=== PATIENT | male | born 1985 | race American Indian/Alaskan Native ===

== ENCOUNTER 2016-11-12 12:42 | Emergency (ER) | payer SELFPAY ==
[2016-11-12 13:38] LABS: Hematocrit 46.3 % (35.5-45.6); Hemoglobin 15.7 gm/dl (11.8-15.2); Mean Corpuscular HGB Conc 34 % (32-34); Mean Corpuscular Hemoglobin 31 pg (28-32); Mean Corpuscular Volume 91 fl (84-94); Platelet Count 267 K/mm3 (140-440); Red Blood Count 5.06 M/mm3 (3.65-5.03); Red Cell Distribution Width 13.4 % (13.2-15.2); White Blood Count 4.6 K/mm3 (4.5-11.0)
[2016-11-12 13:52] LABS: Alanine Aminotransferase 9 units/L (7-56); Albumin 4.3 g/dL (3.9-5); Albumin/Globulin Ratio 1.2 %; Alkaline Phosphatase 56 units/L (35-129); Anion Gap 18 mmol/L; Blood Urea Nitrogen 12 mg/dL (9-20); Calcium 9.2 mg/dL (8.4-10.2); Carbon Dioxide 25 mmol/L (22-30); Chloride 96.3 mmol/L (98-107); Glucose 88 mg/dL (75-100); Sodium 135 mmol/L (137-145); Total Protein 7.8 g/dL (6.3-8.2)
--- NOTE | 2016-11-12 14:28 | Cat Scan Report ---
FINAL REPORT PROCEDURE: CT HEAD/BRAIN WO CON TECHNIQUE: Computerized tomography of the head was performed without contrast material. HISTORY: NEURO CHANGES COMPARISON: No prior studies are available for comparison. FINDINGS: Brain: Brain density appears normal. No evidence of intracranial hemorrhage. No parenchymal hemorrhage, mass lesions or mass effect are seen. No abnormal extraxial fluid collects or masses are seen. Ventricles: Ventricles are normal size and are midline. Bone Windows: No evidence of skull fracture. Paranasal sinuses: There is a large oval filling defects partially visualized inferiorly in the left maxillary sinus suggesting large mucous retention cyst. This measures approximately 1.8 x 2.8 centimeter. A 2nd smaller nodule is seen anterior laterally measuring 7.8 millimeters. Visualized portions of the paranasal sinuses otherwise appear clear. Mastoid air cells: Clear IMPRESSION: Negative unenhanced CT of the brain. Paranasal sinus disease as described.
[2016-11-12 14:30] LABS: INR 1.04 (0.87-1.13)
[2016-11-12 14:31] LABS: Partial Thromboplastin Time 29.6 Sec. (24.2-36.6)
[2016-11-12 14:44] LABS: Urine Drugs of Abuse Note Disclamer
[2016-11-12 14:58] LABS: Bilirubin,Urine NEG (Negative); Blood,Urine MOD (Negative); Ketones,Urine NEG (Negative); Leukocyte Esterase,Urine NEG (Negative); Mucus,Urine 2+ /HPF; Nitrite,Urine NEG (Negative); Protein,Urine <15 mg/dL mg/dL (Negative); Urobilinogen,Urine < 2.0 mg/dL (<2.0)
[2016-11-13] MEDS ORDERED: VALIUM PO ONE ×2 (00:02→00:39)
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
[2016-11-13 01:41] VITALS: BP 146/88
== END 2016-11-13 01:20 | disposition home or self-care (01) ==
LOC: ED 12:42
DX: F43.8 Other reactions to severe stress (principal); F80.89 Other developmental disorders of speech and language; F17.200 Nicotine dependence, unspecified, uncomplicated; F12.10 Cannabis abuse, uncomplicated
CPT/HCPCS: 36415; 70450; 80053; 80307; 81001; 82962; 84484; 85027; 85610; 85670; 85730; 93005; 93010

== ENCOUNTER 2016-11-21 18:26 | Inpatient (IN) | payer SELFPAY ==
[2016-11-21] MEDS ORDERED: ATIVAN ONE (18:27)
[2016-11-21] MEDS ORDERED: GEODON IM ONE ×2 (18:27→18:39)
[2016-11-21] MEDS ORDERED: ATIVAN IM ONE (18:39)
[2016-11-21 19:32] LABS: Basophils % (Auto) 0.4 % (0.0-1.8); Hematocrit 44.5 % (35.5-45.6); Mean Corpuscular HGB Conc 34 % (32-34); Mean Corpuscular Hemoglobin 31 pg (28-32); Mean Corpuscular Volume 91 fl (84-94); Platelet Count 268 K/mm3 (140-440); Red Blood Count 4.92 M/mm3 (3.65-5.03); Red Cell Distribution Width 13.2 % (13.2-15.2); White Blood Count 10.8 K/mm3 (4.5-11.0)
[2016-11-21 19:44] LABS: Anion Gap 27 mmol/L; BUN/Creatinine Ratio 9.16; Blood Urea Nitrogen 11 mg/dL (9-20); Calcium 10.5 mg/dL (8.4-10.2); Carbon Dioxide 19 mmol/L (22-30); Chloride 96.7 mmol/L (98-107); Glucose 125 mg/dL (75-100); Potassium 3.5 mmol/L (3.6-5.0); Sodium 139 mmol/L (137-145)
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
[2016-11-22] MEDS ORDERED: GEODON PO ONE (04:21)
[2016-11-22] MEDS ORDERED: GEODON ONE (04:26)
[2016-11-22] MEDS ORDERED: HALDOL IM ONE (08:50)
[2016-11-22] MEDS ORDERED: ATIVAN IM ONE (08:50)
[2016-11-22 11:39] LABS: Urine Drugs of Abuse Note Disclamer
[2016-11-22 11:52] LABS: Bilirubin,Urine SM (Negative); Blood,Urine LG (Negative); Ketones,Urine 80 mg/dL (Negative); Leukocyte Esterase,Urine NEG (Negative); Mucus,Urine 3+ /HPF; Nitrite,Urine NEG (Negative)
[2016-11-22] MEDS ORDERED: GEODON IM ONE ×2 (22:17→22:24)
--- NOTE | 2016-11-23 16:29 | Consultation ---
History of Present Illness - Reason for Consult Consult date: 11/23/16 Reason for consult: Mental Health Evaluation Requesting physician: BRANDI REIS - Chief Complaint Chief complaint: "My sister" - History of Present Psychiatric Illness Patient is a 31-year-old male who presents with a psychotic episode. Patient arrives belligerent and appears to be reacting to internal stimuli. Today patient is anxious, emotional, and disorganized during the assessment. He could not put together a linear statement or answer a question logically. He went from topic to topic during our conversation than begun talking about synagogue content. Per collateral information from his sister Mg Guallpa [phone] , she stated that her bother's behavior has been bizarre for weeks. She stated that his speech was erratic, he had not slept for days, and felt like some was out to harm him. She denies any SI/HI's by the patient prior to his admission to [facility]. She denies any mental health dx for her brother, nor does he take psy medications. She stated that her brother smoke marijuana often, but denies a excessive alcohol consumption by him. No gestures by the patients of SI/HI's and AVH's. Patient is poor historian. Medications and Allergies Allergies Allergy/AdvReac Type Severity Reaction Status Date / Time No Known Allergies Allergy Unverified 11/12/16 13:08 Home Medications Medication Instructions Recorded Confirmed Last Taken Type hydrOXYzine PAMOATE [Vistaril] 50 mg PO Q6HR PRN #30 capsule 11/13/16 11/22/16 Unknown Rx Past psychiatric history - Past Medical History Past Medical History: No medical history Past Surgical History: No surgical history - past Psychiatric treatment and history psychiatric treatment history: Per the patient's sister no mental health dx. His denies a fam psy hx. - Social History Social history: lives with family Mental Status Exam - Vital signs Last Vital Signs Temp 99.7 F H 11/23/16 10:52 Pulse 105 H 11/23/16 10:52 Resp 16 11/23/16 11:19 BP 192/111 11/23/16 10:52 Pulse Ox 99 11/23/16 11:19 - Exam Narrative exam: ROS: (-) depression, (+) manic MSE: Appearance: cooperative, emotional Behavior: regular eye contact Speech: regular rate and tone Mood: "I don't know" Affect: labile Thought Process: tangential Thought Content: Denies SI/HI's and AVH's, disorganized Motor Activity: ambulatory Cognition: A/Ox 3 Insight: limited Judgment: limited Results Result Diagrams: 11/21/16 19:21 11/21/16 19:21 All other labs normal. Assessment and Plan Assessment and plan: Impression: Unspecified Mood DO. Substance Use DO (marijuana). Today patient is anxious, emotional, and disorganized during the assessment. Patient poor historian. DDx: Bipolar DO, Schizoaffective DO, R/O Substance Induced Mood DO Recommendation/Plan: Continue 1013 with placement to inpatient psy services. Start Depakote 500 mg PO BID for mood.
[2016-11-23 17:24] LABS: Alanine Aminotransferase 58 units/L (7-56); Alkaline Phosphatase 58 units/L (35-129)
[2016-11-23] MEDS ORDERED: CATAPRES PO ONE (17:56)
[2016-11-23] MEDS ORDERED: GEODON IM ONE ×2 (18:01→20:33)
[2016-11-23] MEDS: VISTARIL PO SCH (22:01)
--- NOTE | 2016-11-23 22:28 | Cat Scan Report ---
FINAL REPORT EXAM: CT HEAD/BRAIN WO CON HISTORY: ams TECHNIQUE: Noncontrast CT axial images of the brain. PRIORS: 12 November 2016. FINDINGS: No parenchymal mass, mass effect, hemorrhage, midline shift or hydrocephalus. No evidence of acute cortical infarct. No abnormal, extra-axial fluid or air collection. Osseous calvarium grossly intact. IMPRESSION: 1. No acute intracranial findings.
[2016-11-24] MEDS: VISTARIL PO SCH ×2 (10:19→21:52)
[2016-11-24] MEDS ORDERED: GEODON IM ONE ×3 (13:23→22:17)
[2016-11-24] MEDS ORDERED: CATAPRES PO ONE (14:08)
--- NOTE | 2016-11-24 15:08 | Progress Note ---
Subjective - Reason for Consult Consult date: 11/24/16 Reason for consult: Psychiatry Follow-up - Chief Complaint Chief complaint: "What" Patient is a 31-year-old male who presents with a psychotic episode. Patient arrives belligerent and appears to be reacting to internal stimuli. Today patient is calm during the assessment. He is more confused and disorganized than yesterday. He cannot answer questions logically. He was observed eating his meal prior to the assessment. No gestures of SI/HI's. Per his sister Sarah Guallpa, the patient has never taken a antipsychotic. Mental Status Exam - Vital signs Last Vital Signs Temp 98.6 F 11/24/16 14:21 Pulse 119 H 11/24/16 14:21 Resp 20 11/24/16 14:39 BP 155/121 11/24/16 14:21 Pulse Ox 96 11/24/16 14:21 - Exam Narrative exam: MSE: Appearance: calm Behavior: regular eye contact Speech: regular rate and tone Mood: unable to assess Affect: blunted Thought Process: unable assess Thought Content: No gestures SI/HI's and AVH's, disorganized Motor Activity: ambulatory Cognition: A/Ox 2 Insight: limited Judgment: limited Assessment and Plan Impression: Unspecified Mood DO. Substance Use DO (marijuana). Today patient is calm but disorganized during the assessment. Patient poor historian. Recommendation/Plan: Continue 1013 with placement to inpatient psy services. Continue Vistaril 25 mp PO BID for anxiety. D/C Seroquel. Possibly restart antipsychotic if indicated in 24 to 48 hours.
[2016-11-24] MEDS ORDERED: D5NS 1,000 ML IV SCH (23:00)
[2016-11-24] MEDS ORDERED: NORMODYNE IV ONE (23:26)
--- NOTE | 2016-11-24 23:44 | Cat Scan Report ---
FINAL REPORT PROCEDURE: CT ABDOMEN PELVIS WO CON TECHNIQUE: Computerized axial tomography of the abdomen and pelvis was performed without intravenous contrast. This study is performed without intravascular contrast material and its sensitivity for abdominal and pelvic pathology, including neoplasms, inflammation, abscess, free fluid, thrombosis, arterial dissection and infarction, is reduced compared with a contrast enhanced study. HISTORY: hematuria, elevated lft's COMPARISON: No prior studies are available for comparison. FINDINGS: Visualized lower thorax: No significant abnormality. Liver: Normal size and attenuation. Spleen: Normal size and attenuation. Gallbladder and biliary system: Normal. Pancreas: Normal. Adrenals: Normal. Kidneys: Both kidneys have a normal size. No hydronephrosis. No renal stones or masses.. GI tract: No obstruction. No ileus or enteritis. The cecum, appendix and colon are normal.. Lymph nodes and mesentery: Normal. Vasculature: Normal. Bladder: Normal. Reproductive organs: Normal. Peritoneum: No free fluid. Musculoskeletal structures: No significant abnormality. Other: None. IMPRESSION: There is no evidence of intestinal or urinary tract obstruction. No ileus or enteritis. The appendix is normal..
--- NOTE | 2016-11-25 00:15 | Emergency Department Report ---
Blank Doc - Documentation Documentation: I was asked to evaluate patient by nursing staff. I saw the patient likely last month for possible neurologic deficits were thought to be due to a primary psychiatric disorder. Patient immediately presented and was seen by Dr. Hamilton with acute psychosis. Repeat CT head showed no acute findings. Patient has been requiring multiple doses of Geodon due to agitation and responding to internal stimuli. Patient also required multiple doses of clonidine for elevated blood pressure. I ordered lisinopril to be given daily for his blood pressure. IV labetalol given since patient was still hypertensive despite being on sedated after Geodon IM. However a CT abdomen and pelvis for evaluation amount of ST elevation and hematuria. I'm unsure patient was cathed for urine. CT abdomen and pelvis noncontrast does not show any acute abnormality. UA does not reveal infection and therefore microscopic hematuria may be followed up as an outpatient. Patient's urine had elevated ketones and specific gravity suggestive of dehydration. IV fluids with D5 ordered to help with possible ketosis related to poor by mouth intake. Will repeat bmp after 2 L. BP improved after labetalol. Although patient with temporary sedated at the Geodon 20 mg he required additional Ativan. Patient needs some further recommendations regarding psychiatric medications so that we do not have to continuously give him IV and IV and medications for sedation. Seroquel was recently discontinued as per mental health note and only Vistaril has been recommended.
[2016-11-25] MEDS ORDERED: ATIVAN IV ONE (00:28)
[2016-11-25] MEDS ORDERED: D5NS 1,000 ML IV SCH (01:00)
[2016-11-25 03:26] LABS: Alanine Aminotransferase 62 units/L (7-56); Albumin 3.9 g/dL (3.9-5); Albumin/Globulin Ratio 1.3 %; Alkaline Phosphatase 46 units/L (35-129); Anion Gap 18 mmol/L; BUN/Creatinine Ratio 11.66; Blood Urea Nitrogen 14 mg/dL (9-20); Calcium 8.9 mg/dL (8.4-10.2); Carbon Dioxide 25 mmol/L (22-30); Chloride 103.5 mmol/L (98-107); Glucose 150 mg/dL (75-100); Sodium 144 mmol/L (137-145); Total Protein 6.8 g/dL (6.3-8.2)
[2016-11-25 03:32] LABS: Potassium 2.9 mmol/L (3.6-5.0)
[2016-11-25] MEDS: KCL 10MEQ/100ML 10 MEQ/100 ML BAG IV SCH ×4 (06:00→09:50)
[2016-11-25] MEDS ORDERED: NACL 0.9% 1000 ML 1,000 ML IV ONE ×3 (06:00→18:12)
[2016-11-25] MEDS ORDERED: K-DUR PO ONE (09:29)
[2016-11-25] MEDS ORDERED: NORVASC PO SCH (10:00)
[2016-11-25] MEDS ORDERED: ZESTRIL PO SCH (10:00)
[2016-11-25] MEDS ORDERED: GEODON IM ONE (11:05)
[2016-11-25] MEDS: VISTARIL PO SCH ×2 (11:10→22:24)
[2016-11-25] MEDS: NORVASC PO SCH (11:10)
[2016-11-25] MEDS ORDERED: HALDOL IM ONE (12:00)
--- NOTE | 2016-11-25 12:01 | Event Note ---
Date: 11/25/16 Patient with extreme agitation. Given 10 of Geodon without significant response. Plan give the patient 5 mg of Haldol to address his continued agitation. We'll plan to monitor closely and reassess the patient regularly. Jeane
[2016-11-25] MEDS ORDERED: HALDOL ONE (12:03)
--- NOTE | 2016-11-25 13:32 | Progress Note ---
Subjective - Reason for Consult Consult date: 11/25/16 Reason for consult: follow up - Chief Complaint Chief complaint: "Close the door." Patient is a 31-year-old male who presents with a psychotic episode. Patient arrives belligerent and appears to be reacting to internal stimuli. Today patient is calm during the assessment but quickly escalated. He is paranoid. He is intermittently logical, but loose associations were present. He stated he needs to use the bathroom but cannot because he is in restraints. He is angry about being in restraints and says the secrurity guard is his father. No gestures of SI/HI's. Mental Status Exam - Vital signs Last Vital Signs Temp 98.8 F 11/25/16 02:35 Pulse 98 H 11/25/16 11:10 Resp 16 11/25/16 02:35 BP 155/91 11/25/16 11:10 Pulse Ox 100 11/25/16 02:35 - Exam Narrative exam: MSE: Appearance: in restraints Behavior: regular eye contact Speech: loud Mood: agitated Affect: agitated Thought Process: disorganized Thought Content: delusional Motor Activity: ambulatory Cognition: A/Ox 2 Insight: limited Judgment: limited Assessment and Plan Impression: Unspecified Mood DO. Substance Use DO (marijuana). Psychosis present Recommendation/Plan: Continue 1013 with placement to inpatient psy services. Continue Vistaril 25 mp PO BID for anxiety. Start zyprexa zydis 5mg bid for psychotic symptoms.
[2016-11-25 14:35] LABS: Alanine Aminotransferase 66 units/L (7-56); Albumin/Globulin Ratio 1.3 %; Alkaline Phosphatase 48 units/L (35-129); BUN/Creatinine Ratio 11.11; Blood Urea Nitrogen 10 mg/dL (9-20); Calcium 8.9 mg/dL (8.4-10.2); Carbon Dioxide 24 mmol/L (22-30); Glucose 109 mg/dL (75-100); Total Protein 7.2 g/dL (6.3-8.2)
[2016-11-25 14:36] LABS: Anion Gap 18 mmol/L; Chloride 106.6 mmol/L (98-107); Potassium 3.2 mmol/L (3.6-5.0); Sodium 145 mmol/L (137-145)
[2016-11-25 15:08] LABS: Creatine Kinase 4793 units/L (55-170)
[2016-11-25 15:49] LABS: Bilirubin,Urine NEG (Negative); Blood,Urine MOD (Negative); Ketones,Urine 20 mg/dL (Negative); Leukocyte Esterase,Urine NEG (Negative); Mucus,Urine 1+ /HPF; Nitrite,Urine NEG (Negative); Urobilinogen,Urine < 2.0 mg/dL (<2.0)
[2016-11-25] MEDS ORDERED: BENADRYL ONE (22:50)
[2016-11-25] MEDS ORDERED: ATIVAN ONE (22:51)
[2016-11-25] MEDS: BENADRYL IM PRN (22:59)
[2016-11-25] MEDS: ATIVAN IM PRN (22:59)
--- NOTE | 2016-11-26 01:05 | Emergency Department Report ---
Blank Doc - Documentation Documentation: This patient originally came for appears to be psychosis secondary to schizophrenia. He has been agitated and has required some chemical sedation and /or psychiatric medication treatment. On 11/25 the CK was checked and was found to be greater than 4000. He was given 2 L of IV fluid resuscitation and the CK was rechecked and now is at about 6500. There is no renal sufficiency but this is still concerning for rhabdomyolysis. This needs to be addressed before the patient will be medically cleared for psychiatric placement. Therefore the patient will become a inpatient medical admission but will remain on a 1013 and will receive continued psychiatric consultation until inpatient placement. He has been accepted for admission by the hospitalist, Dr. Kasper.
[2016-11-26] MEDS ORDERED: NACL 0.9% 1000 ML 1,000 ML IV SCH (02:00)
[2016-11-26] MEDS ORDERED: DULCOLAX PR PRN (02:44)
[2016-11-26] MEDS ORDERED: ALUM-MAG HYDROX-SIMETH 200-200-20MG/5ML PO PRN (02:44)
--- NOTE | 2016-11-26 02:51 | History and Physical Report ---
History of Present Illness Date of examination: 11/26/16 Chief complaint: schizophrenia History of present illness: 31-year-old -Citizen Of [place] male has been admitted 5 days ago for schizophrenia , psychosis. Patient has elevated CK level and is on IV fluids but didn't get better. Today CK level was elevated to 7,000 and the patient is admitted to the floor for IV hydration before he was cleared for psych admission. Patient is belligerent and agitated and he didn't to me much history. History was not obtained because the patient is agitated and didn't answer my questions. Past History Past Medical History: other (schizophrenia) Past Surgical History: No surgical history Social history: lives with family, other (couldn't obtained because the patient didn't answer) Family history: other (couldn't obtained because the patient didn't answer) Medications and Allergies Allergies Allergy/AdvReac Type Severity Reaction Status Date / Time No Known Allergies Allergy Unverified 11/12/16 13:08 Home Medications Medication Instructions Recorded Confirmed Last Taken Type hydrOXYzine PAMOATE [Vistaril] 50 mg PO Q6HR PRN #30 capsule 11/13/16 11/22/16 Unknown Rx Active Meds: Active Medications Acetaminophen (Tylenol) 650 mg PO Q4H PRN PRN Reason: Pain MILD(1-3)/Fever >100.5/NOLAND Al Hydrox/Mg Hydrox/Simethicone (Alum-Mag Hydrox-Simeth [phone]/5ml) 30 ml PO Q4H PRN PRN Reason: Indigestion Amlodipine Besylate (Norvasc) 10 mg PO DAILY [facility] Last Admin: 11/25/16 11:10 Dose: 10 mg Bisacodyl (Dulcolax) 10 mg NV QDAY PRN PRN Reason: constipation unrelieved by MOM Diphenhydramine HCl (Benadryl) 50 mg IM Q6H PRN PRN Reason: Agitation Last Admin: 11/25/16 22:59 Dose: 50 mg Hydroxyzine Pamoate (Vistaril) 25 mg PO BID [facility] Last Admin: 11/25/16 22:24 Dose: 25 mg Sodium Chloride (Nacl 0.9% 1000 Ml) 1,000 mls @ 200 mls/hr IV DIRECT [facility] Sodium Chloride (Nacl 0.9% 1000 Ml) 3,000 mls @ 150 mls/hr IV DIRECT [facility] Lorazepam (Ativan) 2 mg IM Q8H PRN PRN Reason: Agitation Last Admin: 11/25/16 22:59 Dose: 2 mg Olanzapine (Zyprexa Zydis) 5 mg PO BID [facility] Last Admin: 11/25/16 22:25 Dose: 5 mg Review of Systems ROS unobtainable: due to mental status (couldn't obtained because the patient didn't answer) Exam - Physical Exam Narrative exam: Not in cardiopulmonary distress. The patient appeared well nourished and normally developed. Vital signs as documented. Head exam is unremarkable. No scleral icterus . Neck is without jugular venous distension, thyromegaly, or carotid bruits. Lungs are clear to auscultation. Cardiac exam reveals regular rate and Rhythm. First and second heart sounds normal. No murmurs, rubs or gallops. Abdominal exam reveals normal bowel sounds, no masses, no organomegaly and no aortic enlargement. Extremities are nonedematous and both femoral and pedal pulses are normal. RUG SCRATCHER: Alert and oriented 3. No focal weakness. - Constitutional Vitals: Temp Pulse Resp BP Pulse Ox 97.8 F 88 18 142/90 99 11/25/16 22:00 11/25/16 22:00 11/25/16 22:00 11/25/16 22:00 11/25/16 22:00 Results - Labs CBC & Chem 7: 11/21/16 19:21 11/25/16 14:03 Labs: Laboratory Last Values WBC 10.8 K/mm3 (4.5-11.0) 11/21/16 19:21 RBC 4.92 M/mm3 (3.65-5.03) 11/21/16 19:21 Hgb 15.0 gm/dl (11.8-15.2) 11/21/16 19:21 Hct 44.5 % (35.5-45.6) 11/21/16 19:21 MCV 91 fl (84-94) 11/21/16 19:21 MCH 31 pg (28-32) 11/21/16 19:21 MCHC 34 % (32-34) 11/21/16 19:21 RDW 13.2 % (13.2-15.2) 11/21/16 19:21 Plt Count 268 K/mm3 (140-440) 11/21/16 19:21 Lymph % (Auto) 6.8 % (13.4-35.0) L 11/21/16 19:21 [place] % (Auto) 6.8 % (0.0-7.3) 11/21/16 19:21 Eos % (Auto) 0.0 % (0.0-4.3) 11/21/16 19:21 Baso % (Auto) 0.4 % (0.0-1.8) 11/21/16 19:21 Lymph # 0.7 K/mm3 (1.2-5.4) L 11/21/16 19:21 [place] # 0.7 K/mm3 (0.0-0.8) 11/21/16 19:21 Eos # 0.0 K/mm3 (0.0-0.4) 11/21/16 19:21 Baso # 0.0 K/mm3 (0.0-0.1) 11/21/16 19:21 Seg Neutrophils % 86.0 % (40.0-70.0) H 11/21/16 19:21 Seg Neutrophils # 9.2 K/mm3 (1.8-7.7) H 11/21/16 19:21 Sodium 145 mmol/L (137-145) 11/25/16 14:03 Potassium 3.2 mmol/L (3.6-5.0) L 11/25/16 14:03 Chloride 106.6 mmol/L (98-107) 11/25/16 14:03 Carbon Dioxide 24 mmol/L (22-30) 11/25/16 14:03 Anion Gap 18 mmol/L 11/25/16 14:03 BUN 10 mg/dL (9-20) 11/25/16 14:03 Creatinine 0.9 mg/dL (0.8-1.5) 11/25/16 14:03 Estimated GFR > 60 ml/min 11/25/16 14:03 BUN/Creatinine Ratio 11.11 % 11/25/16 14:03 Glucose 109 mg/dL (75-100) H 11/25/16 14:03 Calcium 8.9 mg/dL (8.4-10.2) 11/25/16 14:03 Magnesium 1.80 mg/dL (1.7-2.3) 11/25/16 02:28 Total Bilirubin 0.90 mg/dL (0.1-1.2) 11/25/16 14:03 AST 147 units/L (5-40) H 11/25/16 14:03 ALT 66 units/L (7-56) H 11/25/16 14:03 Alkaline Phosphatase 48 units/L (35-129) 11/25/16 14:03 Total Creatine Kinase 6469 units/L (55-170) H 11/25/16 23:24 Total Protein 7.2 g/dL (6.3-8.2) 11/25/16 14:03 Albumin 4.0 g/dL (3.9-5) 11/25/16 14:03 Albumin/Globulin Ratio 1.3 % 11/25/16 14:03 Urine Color [place] (Yellow) 11/25/16 13:39 Urine Turbidity Clear (Clear) 11/25/16 13:39 Urine pH 6.0 (5.0-7.0) 11/25/16 13:39 Ur Specific [place] 1.025 (1.003-1.030) 11/25/16 13:39 Urine Protein 100 mg/dl mg/dL (Negative) 11/25/16 13:39 Urine Glucose (UA) 50 mg/dL (Negative) 11/25/16 13:39 Urine Ketones 20 mg/dL (Negative) 11/25/16 13:39 Urine Blood Mod (Negative) 11/25/16 13:39 Urine Nitrite Neg (Negative) 11/25/16 13:39 Urine Bilirubin Neg (Negative) 11/25/16 13:39 Urine Ictotest Negative (Negative) 11/22/16 11:35 Urine Urobilinogen < 2.0 mg/dL (<2.0) 11/25/16 13:39 Ur Leukocyte Esterase Neg (Negative) 11/25/16 13:39 Urine WBC (Auto) 2.0 /HPF (0.0-6.0) 11/25/16 13:39 Urine RBC (Auto) 5.0 /HPF (0.0-6.0) 11/25/16 13:39 U Epithel Cells (Auto) < 1.0 /HPF (0-13.0) 11/22/16 11:35 Urine Mucus 1+ /HPF 11/25/16 13:39 Urine Opiates Screen Presumptive negative 11/22/16 11:35 Urine Methadone Screen Presumptive negative 11/22/16 11:35 Ur Barbiturates Screen Presumptive negative 11/22/16 11:35 Ur Phencyclidine Scrn Presumptive negative 11/22/16 11:35 Ur Amphetamines Screen Presumptive negative 11/22/16 11:35 U Benzodiazepines Scrn Presumptive negative 11/22/16 11:35 Urine Cocaine Screen Presumptive negative 11/22/16 11:35 U Marijuana (THC) Screen Presumptive positive 11/22/16 11:35 Drugs of Abuse Note Disclamer 11/22/16 11:35 Plasma/Serum Alcohol < 0.01 gm% (0-0.07) 11/21/16 19:21 Assessment and Plan Assessment and plan: Rhabdomyolysis Schizophrenia/psychoses - On IV fluids - Follow psych recommendation for his psych medications - Continue 1013 and restraints DVT prophylaxis - On heparin Disposition - Admit to [facility] floor Advance Directives: Yes VTE prophylaxis?: Chemical Plan of care discussed with patient/family: No
[2016-11-26] MEDS ORDERED: K-DUR PO ONE (02:53)
[2016-11-26 05:01] LABS: Basophils % (Auto) 0.9 % (0.0-1.8); Eosinophils % (Auto) 3.5 % (0.0-4.3); Hemoglobin 14.1 gm/dl (11.8-15.2); Mean Corpuscular HGB Conc 34 % (32-34); Mean Corpuscular Hemoglobin 31 pg (28-32); Mean Corpuscular Volume 91 fl (84-94); Platelet Count 257 K/mm3 (140-440); Red Cell Distribution Width 13.1 % (13.2-15.2); White Blood Count 10.2 K/mm3 (4.5-11.0)
[2016-11-26 05:03] LABS: Anion Gap 21 mmol/L; BUN/Creatinine Ratio 6.66; Blood Urea Nitrogen 6 mg/dL (9-20); Calcium 8.7 mg/dL (8.4-10.2); Carbon Dioxide 21 mmol/L (22-30); Chloride 102.2 mmol/L (98-107); Glucose 90 mg/dL (75-100); Potassium 3.3 mmol/L (3.6-5.0); Sodium 141 mmol/L (137-145)
[2016-11-26 05:29] LABS: Creatine Kinase 7023 units/L (55-170)
[2016-11-26] MEDS: NORVASC PO SCH (11:38)
[2016-11-26] MEDS: VISTARIL PO SCH ×2 (12:24→22:37)
--- NOTE | 2016-11-26 13:50 | Event Note ---
Date: 11/26/16 Patient seen and examined in no acute distress fluids has not been started yet I did discuss with nursing staff to initiate the fluids. We'll continue to monitor creatinine kinase. No renal function abnormality noted at this time. I have advised the patient on the need for the treatment plan is comprehension of this is questionable. Psych we'll continue to follow.
[2016-11-26] MEDS: NACL 0.9% 1000 ML 1,000 ML IV SCH (18:56)
[2016-11-26] MEDS: BENADRYL IM PRN (20:16)
[2016-11-26] MEDS: ATIVAN IM PRN (20:16)
[2016-11-27] MEDS: NACL 0.9% 1000 ML 1,000 ML IV SCH ×2 (02:01→09:33)
[2016-11-27] MEDS: ATIVAN IM PRN ×2 (06:32→18:58)
[2016-11-27] MEDS: BENADRYL IM PRN ×2 (06:33→18:58)
[2016-11-27 08:24] LABS: Anion Gap 18 mmol/L; BUN/Creatinine Ratio 8.75; Blood Urea Nitrogen 7 mg/dL (9-20); Calcium 8.6 mg/dL (8.4-10.2); Carbon Dioxide 24 mmol/L (22-30); Chloride 101.9 mmol/L (98-107); Glucose 90 mg/dL (75-100); Potassium 3.3 mmol/L (3.6-5.0); Sodium 141 mmol/L (137-145)
--- NOTE | 2016-11-27 08:31 | Progress Note ---
Assessment and Plan Assessment and plan: 31-year-old -[place] male has been admitted 5 days ago for schizophrenia , psychosis. Patient has elevated CK level and is on IV fluids but didn't get better. Today CK level was elevated to 7,000 and the patient is admitted to the floor for IV hydration before he was cleared for psych admission. Patient is belligerent and agitated and he didn't give much history. Rabdomylysis Schizophrenia Acute psychosis SIRS Hypokalemia PLAN * Increased IV Fluids and continue to monitor CK levels, renal function is stable * Follow psych recommendation for his psych medications * Check blood cultures, lactic acid * Replace K * Continue 1013 * DVT prophylaxis Disposition Medically clear Discharge once CK levels trend down less than 1500 History Interval history: patient seen and examined in no acute distress. was noted to have belligerent behavior last night and placed on restraints. Hospitalist Physical - Constitutional Vitals: Temp Pulse Resp BP Pulse Ox 99.9 F H 92 H 20 162/99 99 11/27/16 07:06 11/27/16 07:06 11/27/16 07:06 11/27/16 07:06 11/27/16 07:06 General appearance: Present: no acute distress, well-nourished - EENT Eyes: Present: PERRL, EOM intact ENT: hearing intact, clear oral mucosa - Neck Neck: Present: supple, normal ROM - Respiratory Respiratory effort: normal Respiratory: bilateral: CTA - Cardiovascular Rhythm: regular Heart Sounds: Present: S1 & S2 - Extremities Extremities: no ischemia, pulses symmetrical, No edema Peripheral Pulses: within normal limits - Abdominal General gastrointestinal: soft, non-tender, non-distended, normal bowel sounds - Integumentary Integumentary: Present: clear, warm, dry - Psychiatric Psychiatric: appropriate mood/affect, intact judgment & insight - Neurologic Neurologic: CNII-XII intact - Allied Health Allied health notes reviewed: nursing Results - Labs CBC & Chem 7: 11/26/16 04:09 11/27/16 07:52 Labs: Laboratory Last Values WBC 10.2 K/mm3 (4.5-11.0) 11/26/16 04:09 RBC 4.60 M/mm3 (3.65-5.03) 11/26/16 04:09 Hgb 14.1 gm/dl (11.8-15.2) 11/26/16 04:09 Hct 42.0 % (35.5-45.6) 11/26/16 04:09 MCV 91 fl (84-94) 11/26/16 04:09 MCH 31 pg (28-32) 11/26/16 04:09 MCHC 34 % (32-34) 11/26/16 04:09 RDW 13.1 % (13.2-15.2) L 11/26/16 04:09 Plt Count 257 K/mm3 (140-440) 11/26/16 04:09 Lymph % (Auto) 14.6 % (13.4-35.0) 11/26/16 04:09 [place] % (Auto) 10.2 % (0.0-7.3) H 11/26/16 04:09 Eos % (Auto) 3.5 % (0.0-4.3) 11/26/16 04:09 Baso % (Auto) 0.9 % (0.0-1.8) 11/26/16 04:09 Lymph # 1.5 K/mm3 (1.2-5.4) 11/26/16 04:09 [place] # 1.0 K/mm3 (0.0-0.8) H 11/26/16 04:09 Eos # 0.4 K/mm3 (0.0-0.4) 11/26/16 04:09 Baso # 0.1 K/mm3 (0.0-0.1) 11/26/16 04:09 Seg Neutrophils % 70.8 % (40.0-70.0) H 11/26/16 04:09 Seg Neutrophils # 7.2 K/mm3 (1.8-7.7) 11/26/16 04:09 Sodium 141 mmol/L (137-145) 11/27/16 07:52 Potassium 3.3 mmol/L (3.6-5.0) L 11/27/16 07:52 Chloride 101.9 mmol/L (98-107) 11/27/16 07:52 Carbon Dioxide 24 mmol/L (22-30) 11/27/16 07:52 Anion Gap 18 mmol/L 11/27/16 07:52 BUN 7 mg/dL (9-20) L 11/27/16 07:52 Creatinine 0.8 mg/dL (0.8-1.5) 11/27/16 07:52 Estimated GFR > 60 ml/min 11/27/16 07:52 BUN/Creatinine Ratio 8.75 % 11/27/16 07:52 Glucose 90 mg/dL (75-100) 11/27/16 07:52 Calcium 8.6 mg/dL (8.4-10.2) 11/27/16 07:52 Magnesium 1.80 mg/dL (1.7-2.3) 11/25/16 02:28 Total Bilirubin 0.90 mg/dL (0.1-1.2) 11/25/16 14:03 AST 147 units/L (5-40) H 11/25/16 14:03 ALT 66 units/L (7-56) H 11/25/16 14:03 Alkaline Phosphatase 48 units/L (35-129) 11/25/16 14:03 Total Creatine Kinase 6128 units/L (55-170) H 11/26/16 21:18 Total Protein 7.2 g/dL (6.3-8.2) 11/25/16 14:03 Albumin 4.0 g/dL (3.9-5) 11/25/16 14:03 Albumin/Globulin Ratio 1.3 % 11/25/16 14:03 Urine Color [place] (Yellow) 11/25/16 13:39 Urine Turbidity Clear (Clear) 11/25/16 13:39 Urine pH 6.0 (5.0-7.0) 11/25/16 13:39 Ur Specific [place] 1.025 (1.003-1.030) 11/25/16 13:39 Urine Protein 100 mg/dl mg/dL (Negative) 11/25/16 13:39 Urine Glucose (UA) 50 mg/dL (Negative) 11/25/16 13:39 Urine Ketones 20 mg/dL (Negative) 11/25/16 13:39 Urine Blood Mod (Negative) 11/25/16 13:39 Urine Nitrite Neg (Negative) 11/25/16 13:39 Urine Bilirubin Neg (Negative) 11/25/16 13:39 Urine Ictotest Negative (Negative) 11/22/16 11:35 Urine Urobilinogen < 2.0 mg/dL (<2.0) 11/25/16 13:39 Ur Leukocyte Esterase Neg (Negative) 11/25/16 13:39 Urine WBC (Auto) 2.0 /HPF (0.0-6.0) 11/25/16 13:39 Urine RBC (Auto) 5.0 /HPF (0.0-6.0) 11/25/16 13:39 U Epithel Cells (Auto) < 1.0 /HPF (0-13.0) 11/22/16 11:35 Urine Mucus 1+ /HPF 11/25/16 13:39 Urine Opiates Screen Presumptive negative 11/22/16 11:35 Urine Methadone Screen Presumptive negative 11/22/16 11:35 Ur Barbiturates Screen Presumptive negative 11/22/16 11:35 Ur Phencyclidine Scrn Presumptive negative 11/22/16 11:35 Ur Amphetamines Screen Presumptive negative 11/22/16 11:35 U Benzodiazepines Scrn Presumptive negative 11/22/16 11:35 Urine Cocaine Screen Presumptive negative 11/22/16 11:35 U Marijuana (THC) Screen Presumptive positive 11/22/16 11:35 Drugs of Abuse Note Disclamer 11/22/16 11:35 Plasma/Serum Alcohol < 0.01 gm% (0-0.07) 11/21/16 19:21
[2016-11-27] MEDS ORDERED: K-DUR PO ONE (09:00)
[2016-11-27] MEDS: VISTARIL PO SCH ×2 (09:33→22:44)
[2016-11-27] MEDS: NORVASC PO SCH (09:36)
--- NOTE | 2016-11-27 11:35 | Progress Note ---
Subjective - Reason for Consult Consult date: 11/27/16 Reason for consult: Psychiatry Follow-up - Chief Complaint Chief complaint: "What is going on" Patient is a 31-year-old male who presents with a psychotic episode. Patient arrives belligerent and appears to be reacting to internal stimuli. Today patient is calm during the assessment. When patient is asked questions, his answers are not logical. His thought process is disorganized. Per the staff, patient had to be given PRN medication for agitation. He denies SI/HI's. He stated that he hear voices in his ears intermittently. Mental Status Exam - Vital signs Last Vital Signs Temp 99.9 F H 11/27/16 07:06 Pulse 92 H 11/27/16 09:36 Resp 20 11/27/16 07:06 BP 162/99 11/27/16 09:36 Pulse Ox 99 11/27/16 07:06 - Exam Narrative exam: MSE: Appearance: calm, cooperative Behavior: regular eye contact Speech: regular rate and tone Mood: labile Affect: blunted Thought Process: disorganized Thought Content: denies SI/HI's and AVH's Motor Activity: ambulatory Cognition: A/Ox 2 Insight: limited Judgment: limited Assessment and Plan Impression: Unspecified Mood DO. Substance Use DO (marijuana). Today patient is calm and cooperative during the assessment. Patient is restraints. CK 4582, R/O NMS. Patient in restraints Recommendation/Plan: Continue 1013, Vistaril 25 mg PO BID for anxiety, and use Ativan/Benadryl for agitation. Recommend no antipsychotics at this time. D/C'd Zyprexa Zydis. Monitor patient closely for symptoms of NMS (abnormal V/S - fever , irregular HR, elevated resp, tachycardia, muscle rigidity, AMS, and erratic BP ). D/C restraints when not indicated. Continue IV Fluids. Will assess patient daily.
[2016-11-27] MEDS: ZOSYN/NS 4.5GM/100ML 4.5 GM/100 ML VIAL IV SCH (19:20)
[2016-11-27] MEDS: APRESOLINE IV SCH (19:31)
[2016-11-28] MEDS: APRESOLINE IV SCH ×4 (00:38→18:48)
[2016-11-28] MEDS: ZOSYN/NS 4.5GM/100ML 4.5 GM/100 ML VIAL IV SCH ×4 (00:50→19:51)
[2016-11-28 06:33] LABS: Hematocrit 39.8 % (35.5-45.6); Hemoglobin 13.5 gm/dl (11.8-15.2); Mean Corpuscular HGB Conc 34 % (32-34); Mean Corpuscular Hemoglobin 31 pg (28-32); Mean Corpuscular Volume 91 fl (84-94); Platelet Count 287 K/mm3 (140-440); Red Blood Count 4.39 M/mm3 (3.65-5.03); Red Cell Distribution Width 12.9 % (13.2-15.2); White Blood Count 8.8 K/mm3 (4.5-11.0)
[2016-11-28 06:50] LABS: Anion Gap 21 mmol/L; BUN/Creatinine Ratio 8.88; Blood Urea Nitrogen 8 mg/dL (9-20); Calcium 9.2 mg/dL (8.4-10.2); Carbon Dioxide 22 mmol/L (22-30); Chloride 103.4 mmol/L (98-107); Glucose 96 mg/dL (75-100); Potassium 3.2 mmol/L (3.6-5.0); Sodium 143 mmol/L (137-145)
--- NOTE | 2016-11-28 08:05 | XRay Report ---
AP CHEST: HISTORY: Sepsis AP view of the chest demonstrates a normal mediastinal and cardiac contour with clear lungs and normal bony and soft tissue structures. IMPRESSION: Unremarkable AP chest.
--- NOTE | 2016-11-28 10:13 | Progress Note ---
Assessment and Plan Assessment and plan: 31-year-old -[place] Citizen male has been admitted 5 days ago for schizophrenia , psychosis. Patient has elevated CK level and is on IV fluids but didn't get better. Today CK level was elevated to 7,000 and the patient is admitted to the floor for IV hydration before he was cleared for psych admission. Patient is belligerent and agitated and he didn't give much history. Rabdomylysis Schizophrenia Acute psychosis SIRS Hypokalemia PLAN * Increased IV Fluids and continue to monitor CK levels, renal function is stable * Follow psych recommendation for his psych medications * Check blood cultures, lactic acid * Replace K * No clear source of infection * Continue 1013 * DVT prophylaxis Disposition Medically clear Discharge once CK levels trend down less than 1500 and if afebirl x 24 hours History Interval history: patient seen and examined in no acute distress. Remains in resitritants for safety reason due to belligerent behaviour Hospitalist Physical - Constitutional Vitals: Temp Pulse Resp BP Pulse Ox 99.3 F 98 H 18 163/88 99 11/28/16 07:42 11/28/16 08:16 11/28/16 08:16 11/28/16 07:42 11/28/16 07:42 General appearance: Present: no acute distress, well-nourished - EENT Eyes: Present: PERRL, EOM intact ENT: hearing intact, clear oral mucosa - Neck Neck: Present: supple, normal ROM - Respiratory Respiratory effort: normal - Cardiovascular Rhythm: regularly irregular Heart Sounds: Present: S1 & S2 - Extremities Extremities: no ischemia, pulses intact, pulses symmetrical, No edema Peripheral Pulses: within normal limits - Abdominal General gastrointestinal: soft, non-tender, non-distended, normal bowel sounds - Integumentary Integumentary: Present: clear, warm, normal turgor - Psychiatric Psychiatric: appropriate mood/affect - Neurologic Neurologic: CNII-XII intact - Allied Health Allied health notes reviewed: nursing Results - Labs CBC & Chem 7: 11/28/16 05:53 11/28/16 05:53 Labs: Laboratory Last Values WBC 8.8 K/mm3 (4.5-11.0) 11/28/16 05:53 RBC 4.39 M/mm3 (3.65-5.03) 11/28/16 05:53 Hgb 13.5 gm/dl (11.8-15.2) 11/28/16 05:53 Hct 39.8 % (35.5-45.6) 11/28/16 05:53 MCV 91 fl (84-94) 11/28/16 05:53 MCH 31 pg (28-32) 11/28/16 05:53 MCHC 34 % (32-34) 11/28/16 05:53 RDW 12.9 % (13.2-15.2) L 11/28/16 05:53 Plt Count 287 K/mm3 (140-440) 11/28/16 05:53 Lymph % (Auto) 14.6 % (13.4-35.0) 11/26/16 04:09 [place] % (Auto) 10.2 % (0.0-7.3) H 11/26/16 04:09 Eos % (Auto) 3.5 % (0.0-4.3) 11/26/16 04:09 Baso % (Auto) 0.9 % (0.0-1.8) 11/26/16 04:09 Lymph # 1.5 K/mm3 (1.2-5.4) 11/26/16 04:09 [place] # 1.0 K/mm3 (0.0-0.8) H 11/26/16 04:09 Eos # 0.4 K/mm3 (0.0-0.4) 11/26/16 04:09 Baso # 0.1 K/mm3 (0.0-0.1) 11/26/16 04:09 Seg Neutrophils % 70.8 % (40.0-70.0) H 11/26/16 04:09 Seg Neutrophils # 7.2 K/mm3 (1.8-7.7) 11/26/16 04:09 Sodium 143 mmol/L (137-145) 11/28/16 05:53 Potassium 3.2 mmol/L (3.6-5.0) L 11/28/16 05:53 Chloride 103.4 mmol/L (98-107) 11/28/16 05:53 Carbon Dioxide 22 mmol/L (22-30) 11/28/16 05:53 Anion Gap 21 mmol/L 11/28/16 05:53 BUN 8 mg/dL (9-20) L 11/28/16 05:53 Creatinine 0.9 mg/dL (0.8-1.5) 11/28/16 05:53 Estimated GFR > 60 ml/min 11/28/16 05:53 BUN/Creatinine Ratio 8.88 % 11/28/16 05:53 Glucose 96 mg/dL (75-100) 11/28/16 05:53 Lactic Acid 1.10 mmol/L (0.7-2.0) 11/27/16 17:47 Calcium 9.2 mg/dL (8.4-10.2) 11/28/16 05:53 Magnesium 1.80 mg/dL (1.7-2.3) 11/25/16 02:28 Total Bilirubin 0.90 mg/dL (0.1-1.2) 11/25/16 14:03 AST 147 units/L (5-40) H 11/25/16 14:03 ALT 66 units/L (7-56) H 11/25/16 14:03 Alkaline Phosphatase 48 units/L (35-129) 11/25/16 14:03 Total Creatine Kinase 3622 units/L (55-170) H 11/28/16 05:53 Total Protein 7.2 g/dL (6.3-8.2) 11/25/16 14:03 Albumin 4.0 g/dL (3.9-5) 11/25/16 14:03 Albumin/Globulin Ratio 1.3 % 11/25/16 14:03 Urine Color [place] (Yellow) 11/25/16 13:39 Urine Turbidity Clear (Clear) 11/25/16 13:39 Urine pH 6.0 (5.0-7.0) 11/25/16 13:39 Ur Specific [place] 1.025 (1.003-1.030) 11/25/16 13:39 Urine Protein 100 mg/dl mg/dL (Negative) 11/25/16 13:39 Urine Glucose (UA) 50 mg/dL (Negative) 11/25/16 13:39 Urine Ketones 20 mg/dL (Negative) 11/25/16 13:39 Urine Blood Mod (Negative) 11/25/16 13:39 Urine Nitrite Neg (Negative) 11/25/16 13:39 Urine Bilirubin Neg (Negative) 11/25/16 13:39 Urine Ictotest Negative (Negative) 11/22/16 11:35 Urine Urobilinogen < 2.0 mg/dL (<2.0) 11/25/16 13:39 Ur Leukocyte Esterase Neg (Negative) 11/25/16 13:39 Urine WBC (Auto) 2.0 /HPF (0.0-6.0) 11/25/16 13:39 Urine RBC (Auto) 5.0 /HPF (0.0-6.0) 11/25/16 13:39 U Epithel Cells (Auto) < 1.0 /HPF (0-13.0) 11/22/16 11:35 Urine Mucus 1+ /HPF 11/25/16 13:39 Urine Opiates Screen Presumptive negative 11/22/16 11:35 Urine Methadone Screen Presumptive negative 11/22/16 11:35 Ur Barbiturates Screen Presumptive negative 11/22/16 11:35 Ur Phencyclidine Scrn Presumptive negative 11/22/16 11:35 Ur Amphetamines Screen Presumptive negative 11/22/16 11:35 U Benzodiazepines Scrn Presumptive negative 11/22/16 11:35 Urine Cocaine Screen Presumptive negative 11/22/16 11:35 U Marijuana (THC) Screen Presumptive positive 11/22/16 11:35 Drugs of Abuse Note Disclamer 11/22/16 11:35 Plasma/Serum Alcohol < 0.01 gm% (0-0.07) 11/21/16 19:21 - Imaging and Cardiology Chest x-ray: image reviewed
[2016-11-28] MEDS: NORVASC PO SCH (10:37)
[2016-11-28] MEDS: VISTARIL PO SCH ×2 (10:37→21:56)
--- NOTE | 2016-11-28 12:26 | Progress Note ---
Subjective - Reason for Consult Consult date: 11/28/16 Reason for consult: Psychiatry Follow-up - Chief Complaint Chief complaint: "Paramjit" Patient is a 31-year-old male who presents with a psychotic episode. Patient arrives belligerent and appears to be reacting to internal stimuli. Today patient is calm during the assessment. Patient is more engaging today, than previous assessments. He was able to tell me his and his current location. Patient still reports AH's, but he cannot say what the voices are saying to him. Per his assigned RN, patient have been appropriate. Also, per the staff, patient ate 100% of his breakfast. He denies SI/HI's, VH's, and depression. Mental Status Exam - Vital signs Last Vital Signs Temp 99.3 F 11/28/16 07:42 Pulse 98 H 11/28/16 10:37 Resp 18 11/28/16 08:16 BP 163/88 11/28/16 10:37 Pulse Ox 99 11/28/16 07:42 - Exam Narrative exam: MSE: Appearance: calm, cooperative Behavior: regular eye contact Speech: regular rate and tone Mood: "better" Affect: congruent to mood Thought Process: circumstantial Thought Content: denies SI/HI's and VH's, intermittent AH's Motor Activity: ambulatory Cognition: A/Ox 3 Insight: limited Judgment: limited Assessment and Plan Impression: Unspecified Mood DO. Substance Use DO (marijuana). Today patient is calm and cooperative during the assessment. Patient in restraints. CK 3622, trending down. R/O NMS. Recommendation/Plan: Continue 1013, Vistaril 25 mg PO BID for anxiety, and use Ativan/Benadryl for agitation. Recommend no antipsychotics at this time. D/C'd Zyprexa Zydis. Monitor patient closely for symptoms of NMS (abnormal V/S - fever , irregular HR, elevated resp, tachycardia, muscle rigidity, AMS, and erratic BP ). D/C restraints when not indicated. Continue IV Fluids. Will assess patient daily.
[2016-11-28] MEDS: MILK OF MAGNESIA PO PRN (12:46)
[2016-11-28] MEDS: NACL 0.9% 1000 ML 1,000 ML IV SCH (19:16)
[2016-11-28] MEDS: ATIVAN IM PRN (22:00)
[2016-11-29] MEDS: ZOSYN/NS 4.5GM/100ML 4.5 GM/100 ML VIAL IV SCH ×4 (00:30→18:21)
[2016-11-29] MEDS: APRESOLINE IV SCH ×4 (00:31→18:22)
[2016-11-29] MEDS: NACL 0.9% 1000 ML 1,000 ML IV SCH ×2 (06:16→16:37)
--- NOTE | 2016-11-29 09:19 | Discharge Summary ---
Providers - Providers Date of Admission: 11/21/16 19:00 Attending physician: FLORIDA NIELSON MD Primary care physician: [facility]ER[facility]Y AIDE Hospitalization Reason for admission: RHABDOMYLYSIS Condition: Stable Hospital course: 31-year-old -Spanish male has been admitted 5 days ago for schizophrenia , psychosis. Patient has elevated CK level and is on IV fluids but didn't get better. Today CK level was elevated to 7,000 and the patient is admitted to the floor for IV hydration before he was cleared for psych admission. Patient is belligerent and agitated and he didn't give much history. patient was treated with IV fluids. Psychiatry continued the 1013 and monitored patient with Vistaril and PRN/ATIVAN AND BENADRYL Patient did have an elevated temperature which resolved with Abx but not source was found. Abx was discontinued and this attributed to Rhabdomlysis. Rabdomlysis Schizophrenia Acute psychosis SIRS Hypokalemia Unspecified Mood DO with psychotic features. Substance Use DO (marijuana) Medically clear Discharge Disposition: DC/TX-65 PSY HOSP/PSY UNIT Time spent for discharge: 35 mins Core Measure Documentation - Palliative Care Palliative Care/ Comfort Measures: Not Applicable - Core Measures Any of the following diagnoses?: none - VTE Discharge Requirements Deep Vein Thrombosis/Pulmonary Embolism Present on Admission: No Exam - Physical Exam Narrative exam: VITAL SIGNS: Reviewed. GENERAL: The patient appeared well nourished and normally developed. Vital signs as documented. HEAD: No signs of head trauma. EYES: Pupils are equal. Extraocular motions intact. EARS: Hearing grossly intact. MOUTH: Oropharynx is normal. NECK: No adenopathy, no JVD. CHEST: Chest with clear breath sounds bilaterally. No wheezes, rales, or rhonchi. CARDIAC: Regular rate and rhythm. S1 and S2, without murmurs, gallops, or rubs. VASCULAR: No Edema. Peripheral pulses normal and equal in all extremities. ABDOMEN: Soft, without detectable tenderness. No sign of distention. No rebound or guarding, and no masses palpated. Bowel Sounds normal. MUSCULOSKELETAL: Good range of motion of all major joints. Extremities without clubbing, cyanosis or edema. NEUROLOGIC EXAM: Alert and oriented x 3. No focal sensory or strength deficits. Speech normal. Follows commands. PSYCHIATRIC: Mood normal. SKIN: No rash or lesions. - Constitutional Vitals: Temp Pulse Resp BP Pulse Ox 98.3 F 119 H 20 149/78 99 11/29/16 08:10 11/29/16 08:10 11/29/16 08:10 11/29/16 08:10 11/29/16 08:10 Plan Activity: advance as tolerated, fall precautions Diet: regular Additional Instructions: follow ups per psychiatrist Follow up with: PRIMARY CARE, [Primary Care Provider] - 3-5 Days Prescriptions: amLODIPine [Norvasc] 10 mg PO DAILY #30 tablet hydrOXYzine PAMOATE [Vistaril] 50 mg PO Q6HR PRN #10 capsule PRN Reason: Anxiety
[2016-11-29] MEDS: NORVASC PO SCH (10:46)
[2016-11-29] MEDS: VISTARIL PO SCH ×2 (10:46→21:40)
[2016-11-29] MEDS: ATIVAN IM PRN ×2 (13:07→21:39)
[2016-11-29] MEDS: BENADRYL IM PRN ×2 (13:07→21:39)
--- NOTE | 2016-11-29 14:07 | Progress Note ---
Assessment and Plan Assessment and plan: 31-year-old -[place] male has been admitted 5 days ago for schizophrenia , psychosis. Patient has elevated CK level and is on IV fluids but didn't get better. Today CK level was elevated to 7,000 and the patient is admitted to the floor for IV hydration before he was cleared for psych admission. Patient is belligerent and agitated and he didn't give much history. Rabdomylysis Schizophrenia Acute psychosis SIRS Hypokalemia PLAN * Increased IV Fluids and continue to monitor CK levels, renal function is stable * Follow psych recommendation for his psych medications * Colchicine-acetaminophen negative. No evidence of sepsis. Likely as a result of the rhabdomyolysis. No true evidence of neuroleptic malignant syndrome * Replace K * No clear source of infection * Continue 1013 * DVT prophylaxis Disposition Medically cleared Discharge History Interval history: patient seen and examined in no acute distress. Remains in restraints for safety reason due to belligerent behaviour. No new complaints noted. Hospitalist Physical - Physical exam Narrative exam: VITAL SIGNS: Reviewed. GENERAL: The patient appeared well nourished and normally developed. Vital signs as documented. HEAD: No signs of head trauma. EYES: Pupils are equal. Extraocular motions intact. EARS: Hearing grossly intact. MOUTH: Oropharynx is normal. NECK: No adenopathy, no JVD. CHEST: Chest with clear breath sounds bilaterally. No wheezes, rales, or rhonchi. CARDIAC: Regular rate and rhythm. S1 and S2, without murmurs, gallops, or rubs. VASCULAR: No Edema. Peripheral pulses normal and equal in all extremities. ABDOMEN: Soft, without detectable tenderness. No sign of distention. No rebound or guarding, and no masses palpated. Bowel Sounds normal. MUSCULOSKELETAL: Good range of motion of all major joints. Extremities without clubbing, cyanosis or edema. NEUROLOGIC EXAM: Alert and oriented x 3. No focal sensory or strength deficits. Speech normal. Follows commands. PSYCHIATRIC: Mood normal. SKIN: No rash or lesions. - Constitutional Vitals: Temp Pulse Resp BP Pulse Ox 98.3 F 119 H 20 138/76 99 11/29/16 08:10 11/29/16 11:41 11/29/16 08:10 11/29/16 11:41 11/29/16 08:10 General appearance: Present: no acute distress, well-nourished Results - Labs CBC & Chem 7: 11/28/16 05:53 11/28/16 05:53 Labs: Laboratory Last Values WBC 8.8 K/mm3 (4.5-11.0) 11/28/16 05:53 RBC 4.39 M/mm3 (3.65-5.03) 11/28/16 05:53 Hgb 13.5 gm/dl (11.8-15.2) 11/28/16 05:53 Hct 39.8 % (35.5-45.6) 11/28/16 05:53 MCV 91 fl (84-94) 11/28/16 05:53 MCH 31 pg (28-32) 11/28/16 05:53 MCHC 34 % (32-34) 11/28/16 05:53 RDW 12.9 % (13.2-15.2) L 11/28/16 05:53 Plt Count 287 K/mm3 (140-440) 11/28/16 05:53 Lymph % (Auto) 14.6 % (13.4-35.0) 11/26/16 04:09 [place] % (Auto) 10.2 % (0.0-7.3) H 11/26/16 04:09 Eos % (Auto) 3.5 % (0.0-4.3) 11/26/16 04:09 Baso % (Auto) 0.9 % (0.0-1.8) 11/26/16 04:09 Lymph # 1.5 K/mm3 (1.2-5.4) 11/26/16 04:09 [place] # 1.0 K/mm3 (0.0-0.8) H 11/26/16 04:09 Eos # 0.4 K/mm3 (0.0-0.4) 11/26/16 04:09 Baso # 0.1 K/mm3 (0.0-0.1) 11/26/16 04:09 Seg Neutrophils % 70.8 % (40.0-70.0) H 11/26/16 04:09 Seg Neutrophils # 7.2 K/mm3 (1.8-7.7) 11/26/16 04:09 Sodium 143 mmol/L (137-145) 11/28/16 05:53 Potassium 3.2 mmol/L (3.6-5.0) L 11/28/16 05:53 Chloride 103.4 mmol/L (98-107) 11/28/16 05:53 Carbon Dioxide 22 mmol/L (22-30) 11/28/16 05:53 Anion Gap 21 mmol/L 11/28/16 05:53 BUN 8 mg/dL (9-20) L 11/28/16 05:53 Creatinine 0.9 mg/dL (0.8-1.5) 11/28/16 05:53 Estimated GFR > 60 ml/min 11/28/16 05:53 BUN/Creatinine Ratio 8.88 % 11/28/16 05:53 Glucose 96 mg/dL (75-100) 11/28/16 05:53 Lactic Acid 1.10 mmol/L (0.7-2.0) 11/27/16 17:47 Calcium 9.2 mg/dL (8.4-10.2) 11/28/16 05:53 Magnesium 1.80 mg/dL (1.7-2.3) 11/25/16 02:28 Total Bilirubin 0.90 mg/dL (0.1-1.2) 11/25/16 14:03 AST 147 units/L (5-40) H 11/25/16 14:03 ALT 66 units/L (7-56) H 11/25/16 14:03 Alkaline Phosphatase 48 units/L (35-129) 11/25/16 14:03 Total Creatine Kinase 1687 units/L (55-170) H 11/29/16 07:10 Total Protein 7.2 g/dL (6.3-8.2) 11/25/16 14:03 Albumin 4.0 g/dL (3.9-5) 11/25/16 14:03 Albumin/Globulin Ratio 1.3 % 11/25/16 14:03 Urine Color [place] (Yellow) 11/25/16 13:39 Urine Turbidity Clear (Clear) 11/25/16 13:39 Urine pH 6.0 (5.0-7.0) 11/25/16 13:39 Ur Specific [place] 1.025 (1.003-1.030) 11/25/16 13:39 Urine Protein 100 mg/dl mg/dL (Negative) 11/25/16 13:39 Urine Glucose (UA) 50 mg/dL (Negative) 11/25/16 13:39 Urine Ketones 20 mg/dL (Negative) 11/25/16 13:39 Urine Blood Mod (Negative) 11/25/16 13:39 Urine Nitrite Neg (Negative) 11/25/16 13:39 Urine Bilirubin Neg (Negative) 11/25/16 13:39 Urine Ictotest Negative (Negative) 11/22/16 11:35 Urine Urobilinogen < 2.0 mg/dL (<2.0) 11/25/16 13:39 Ur Leukocyte Esterase Neg (Negative) 11/25/16 13:39 Urine WBC (Auto) 2.0 /HPF (0.0-6.0) 11/25/16 13:39 Urine RBC (Auto) 5.0 /HPF (0.0-6.0) 11/25/16 13:39 U Epithel Cells (Auto) < 1.0 /HPF (0-13.0) 11/22/16 11:35 Urine Mucus 1+ /HPF 11/25/16 13:39 Urine Opiates Screen Presumptive negative 11/22/16 11:35 Urine Methadone Screen Presumptive negative 11/22/16 11:35 Ur Barbiturates Screen Presumptive negative 11/22/16 11:35 Ur Phencyclidine Scrn Presumptive negative 11/22/16 11:35 Ur Amphetamines Screen Presumptive negative 11/22/16 11:35 U Benzodiazepines Scrn Presumptive negative 11/22/16 11:35 Urine Cocaine Screen Presumptive negative 11/22/16 11:35 U Marijuana (THC) Screen Presumptive positive 11/22/16 11:35 Drugs of Abuse Note Disclamer 11/22/16 11:35 Plasma/Serum Alcohol < 0.01 gm% (0-0.07) 11/21/16 19:21
[2016-11-30] MEDS: ZOSYN/NS 4.5GM/100ML 4.5 GM/100 ML VIAL IV SCH ×4 (01:00→17:59)
[2016-11-30] MEDS: APRESOLINE IV SCH ×4 (01:01→17:58)
[2016-11-30] MEDS: HALDOL DECANOATE IM ONE ×2 (01:34→01:49)
[2016-11-30] MEDS ORDERED: HALDOL IM ONE ×2 (02:00→23:24)
[2016-11-30] MEDS: ATIVAN IM PRN ×3 (08:10→21:28)
--- NOTE | 2016-11-30 12:29 | Progress Note ---
Subjective - Reason for Consult Consult date: 11/30/16 Reason for consult: Psychiatry Follow-up - Chief Complaint Chief complaint: "I want to get up" Patient is a 31-year-old male who presents with a psychotic episode. Patient arrives belligerent and appears to be reacting to internal stimuli. Today patient is calm and cooperative during assessment. He still endorses AH's and when asked questions. He would pause for several seconds before answering, possibly responding to some type of stimuli. He stated that these "people" were in his room. He could not elaborate about these people. He stated that he would like to brush his teeth and take a shower. He denies SI/HI's and VH's. Per the staff, patient is eating 100% of all his meals. Mental Status Exam - Vital signs Last Vital Signs Temp 99.8 F H 11/30/16 01:02 Pulse 90 11/30/16 06:16 Resp 18 11/30/16 01:02 BP 146/86 11/30/16 06:16 Pulse Ox 98 11/30/16 01:02 - Exam Narrative exam: MSE: Appearance: calm, cooperative Behavior: regular eye contact Speech: regular rate and tone Mood: "I am not sure" Affect: labile Thought Process: tangential Thought Content: denies SI/HI's and VH's, disorganized, delusional Motor Activity: lying bed Cognition: A/Ox 3 Insight: limited Judgment: limited Assessment and Plan Impression: Unspecified Mood DO with psychotic features. Substance Use DO ( marijuana). Today patient is calm and cooperative during the assessment. Patient in restraints. CK 1687, trending down. R/O NMS. Recommendation/Plan: Continue 1013 with placement to inpatient psy services. Continue Vistaril 25 mg PO BID for anxiety and use Ativan/Benadryl for agitation. Recommend no antipsychotics at this time. Monitor patient closely for symptoms of NMS (abnormal V/S - fever, irregular HR, elevated resp, tachycardia, muscle rigidity, AMS, and erratic BP). D/C restraints when not indicated. Informed his assigned RN to allow patient to complete ADL's with assistance and reassess for restraints use. Recommend PT to see patient. Will assess patient daily. Ordered EKG and LFT's.
[2016-11-30] MEDS: NORVASC PO SCH (13:25)
[2016-11-30] MEDS: VISTARIL PO SCH ×2 (13:25→21:29)
--- NOTE | 2016-11-30 13:41 | Progress Note ---
Assessment and Plan Assessment and plan: 31-year-old -Al[place]ian male has been admitted 5 days ago for schizophrenia , psychosis. Patient has elevated CK level and is on IV fluids but didn't get better. Today CK level was elevated to 7,000 and the patient is admitted to the floor for IV hydration before he was cleared for psych admission. Patient is belligerent and agitated and he didn't give much history. patient was treated with IV fluids. Psychiatry continued the 1013 and monitored patient with Vistaril and PRN/ATIVAN AND BENADRYL Patient did have an elevated temperature which resolved with Abx but not source was found. Abx was discontinued and this attributed to Rhabdomlysis. Rabdomylysis Schizophrenia Acute psychosis SIRS Hypokalemia PLAN * D/C IV fluids- CK levels down, renal function is stable * Follow psych recommendation for his psych medications * No evidence of sepsis. Likely as a result of the rhabdomyolysis. No true evidence of neuroleptic malignant syndrome * Replaced K * Will recheck * No clear source of infection * Continue 1013 * DVT prophylaxis Disposition Medically cleared Discharge History Interval history: patient seen and examined in no acute distress. Remains in restraints for safety reason due to belligerent behaviour. No new complaints noted. Hospitalist Physical - Physical exam Narrative exam: VITAL SIGNS: Reviewed. GENERAL: The patient appeared well nourished and normally developed. Vital signs as documented. HEAD: No signs of head trauma. EYES: Pupils are equal. Extraocular motions intact. EARS: Hearing grossly intact. MOUTH: Oropharynx is normal. NECK: No adenopathy, no JVD. CHEST: Chest with clear breath sounds bilaterally. No wheezes, rales, or rhonchi. CARDIAC: Regular rate and rhythm. S1 and S2, without murmurs, gallops, or rubs. VASCULAR: No Edema. Peripheral pulses normal and equal in all extremities. ABDOMEN: Soft, without detectable tenderness. No sign of distention. No rebound or guarding, and no masses palpated. Bowel Sounds normal. MUSCULOSKELETAL: Good range of motion of all major joints. Extremities without clubbing, cyanosis or edema. NEUROLOGIC EXAM: Alert and oriented x 3. No focal sensory or strength deficits. Speech normal. Follows commands. PSYCHIATRIC: Mood ANXIOUS SKIN: No rash or lesions. - Constitutional Vitals: Temp Pulse Resp BP Pulse Ox 99.8 F H 90 18 146/86 98 11/30/16 01:02 11/30/16 06:16 11/30/16 01:02 11/30/16 06:16 11/30/16 01:02 General appearance: Present: no acute distress, well-nourished Results - Labs CBC & Chem 7: 11/28/16 05:53 11/28/16 05:53 Labs: Laboratory Last Values WBC 8.8 K/mm3 (4.5-11.0) 11/28/16 05:53 RBC 4.39 M/mm3 (3.65-5.03) 11/28/16 05:53 Hgb 13.5 gm/dl (11.8-15.2) 11/28/16 05:53 Hct 39.8 % (35.5-45.6) 11/28/16 05:53 MCV 91 fl (84-94) 11/28/16 05:53 MCH 31 pg (28-32) 11/28/16 05:53 MCHC 34 % (32-34) 11/28/16 05:53 RDW 12.9 % (13.2-15.2) L 11/28/16 05:53 Plt Count 287 K/mm3 (140-440) 11/28/16 05:53 Lymph % (Auto) 14.6 % (13.4-35.0) 11/26/16 04:09 [place] % (Auto) 10.2 % (0.0-7.3) H 11/26/16 04:09 Eos % (Auto) 3.5 % (0.0-4.3) 11/26/16 04:09 Baso % (Auto) 0.9 % (0.0-1.8) 11/26/16 04:09 Lymph # 1.5 K/mm3 (1.2-5.4) 11/26/16 04:09 [place] # 1.0 K/mm3 (0.0-0.8) H 11/26/16 04:09 Eos # 0.4 K/mm3 (0.0-0.4) 11/26/16 04:09 Baso # 0.1 K/mm3 (0.0-0.1) 11/26/16 04:09 Seg Neutrophils % 70.8 % (40.0-70.0) H 11/26/16 04:09 Seg Neutrophils # 7.2 K/mm3 (1.8-7.7) 11/26/16 04:09 Sodium 143 mmol/L (137-145) 11/28/16 05:53 Potassium 3.2 mmol/L (3.6-5.0) L 11/28/16 05:53 Chloride 103.4 mmol/L (98-107) 11/28/16 05:53 Carbon Dioxide 22 mmol/L (22-30) 11/28/16 05:53 Anion Gap 21 mmol/L 11/28/16 05:53 BUN 8 mg/dL (9-20) L 11/28/16 05:53 Creatinine 0.9 mg/dL (0.8-1.5) 11/28/16 05:53 Estimated GFR > 60 ml/min 11/28/16 05:53 BUN/Creatinine Ratio 8.88 % 11/28/16 05:53 Glucose 96 mg/dL (75-100) 11/28/16 05:53 Lactic Acid 1.10 mmol/L (0.7-2.0) 11/27/16 17:47 Calcium 9.2 mg/dL (8.4-10.2) 11/28/16 05:53 Magnesium 1.80 mg/dL (1.7-2.3) 11/25/16 02:28 Total Bilirubin 0.90 mg/dL (0.1-1.2) 11/25/16 14:03 AST 147 units/L (5-40) H 11/25/16 14:03 ALT 66 units/L (7-56) H 11/25/16 14:03 Alkaline Phosphatase 48 units/L (35-129) 11/25/16 14:03 Total Creatine Kinase 1687 units/L (55-170) H 11/29/16 07:10 Total Protein 7.2 g/dL (6.3-8.2) 11/25/16 14:03 Albumin 4.0 g/dL (3.9-5) 11/25/16 14:03 Albumin/Globulin Ratio 1.3 % 11/25/16 14:03 Urine Color [place] (Yellow) 11/25/16 13:39 Urine Turbidity Clear (Clear) 11/25/16 13:39 Urine pH 6.0 (5.0-7.0) 11/25/16 13:39 Ur Specific [place] 1.025 (1.003-1.030) 11/25/16 13:39 Urine Protein 100 mg/dl mg/dL (Negative) 11/25/16 13:39 Urine Glucose (UA) 50 mg/dL (Negative) 11/25/16 13:39 Urine Ketones 20 mg/dL (Negative) 11/25/16 13:39 Urine Blood Mod (Negative) 11/25/16 13:39 Urine Nitrite Neg (Negative) 11/25/16 13:39 Urine Bilirubin Neg (Negative) 11/25/16 13:39 Urine Ictotest Negative (Negative) 11/22/16 11:35 Urine Urobilinogen < 2.0 mg/dL (<2.0) 11/25/16 13:39 Ur Leukocyte Esterase Neg (Negative) 11/25/16 13:39 Urine WBC (Auto) 2.0 /HPF (0.0-6.0) 11/25/16 13:39 Urine RBC (Auto) 5.0 /HPF (0.0-6.0) 11/25/16 13:39 U Epithel Cells (Auto) < 1.0 /HPF (0-13.0) 11/22/16 11:35 Urine Mucus 1+ /HPF 11/25/16 13:39 Urine Opiates Screen Presumptive negative 11/22/16 11:35 Urine Methadone Screen Presumptive negative 11/22/16 11:35 Ur Barbiturates Screen Presumptive negative 11/22/16 11:35 Ur Phencyclidine Scrn Presumptive negative 11/22/16 11:35 Ur Amphetamines Screen Presumptive negative 11/22/16 11:35 U Benzodiazepines Scrn Presumptive negative 11/22/16 11:35 Urine Cocaine Screen Presumptive negative 11/22/16 11:35 U Marijuana (THC) Screen Presumptive positive 11/22/16 11:35 Drugs of Abuse Note Disclamer 11/22/16 11:35 Plasma/Serum Alcohol < 0.01 gm% (0-0.07) 11/21/16 19:21
[2016-11-30 15:21] LABS: Alanine Aminotransferase 42 units/L (7-56); Alkaline Phosphatase 44 units/L (35-129)
[2016-11-30] MEDS: BENADRYL IM PRN (17:58)
[2016-11-30] MEDS: MILK OF MAGNESIA PO PRN (22:54)
[2016-12-01] MEDS: APRESOLINE IV SCH ×4 (00:35→18:18)
[2016-12-01] MEDS: BENADRYL IM PRN ×2 (00:36→22:38)
[2016-12-01] MEDS: ZOSYN/NS 4.5GM/100ML 4.5 GM/100 ML VIAL IV SCH ×4 (00:38→18:00)
[2016-12-01 05:25] LABS: Alanine Aminotransferase 47 units/L (7-56); Albumin 4.1 g/dL (3.9-5); Albumin/Globulin Ratio 1.2 %; Alkaline Phosphatase 47 units/L (35-129); Anion Gap 20 mmol/L; Blood Urea Nitrogen 8 mg/dL (9-20); Calcium 9.3 mg/dL (8.4-10.2); Carbon Dioxide 22 mmol/L (22-30); Creatine Kinase 1569 units/L (55-170); Glucose 88 mg/dL (75-100); Potassium 3.7 mmol/L (3.6-5.0); Sodium 139 mmol/L (137-145); Total Protein 7.5 g/dL (6.3-8.2)
[2016-12-01 05:27] LABS: Bilirubin,Direct < 0.2 mg/dL (0-0.2); Bilirubin,Indirect 0.5 mg/dL
[2016-12-01] MEDS: NORVASC PO SCH (09:26)
[2016-12-01] MEDS: VISTARIL PO SCH ×2 (09:26→21:16)
--- NOTE | 2016-12-01 10:54 | Progress Note ---
Assessment and Plan Assessment and Plan 1. Rhabdomyolysis: CK levels trending down, renal function stable, IV fluids d' leti. 2. Hypokalemia: Corrected. 3. SIRS: Blood cultures negative, no source of infection, likely secondary to rhabdo. 4. Schizophrenia with acute psychosis: Continue 1013, awaiting psych placement. 5. DVT prophylaxis: SCD. 6. Disposition: Medically cleared, awaiting placement. Subjective Date of service: 12/01/16 Principal diagnosis: Rhabdomyolysis, Acute psychosis, Schizophrenia Interval history: Drowsy, awaiting placement. Objective - Constitutional Vitals: Vital Signs - 12hr 12/01/16 12/01/16 12/01/16 00:35 05:59 08:03 Temperature 98.0 F Pulse Rate 100 H 101 H 113 H Respiratory 20 Rate Blood Pressure 143/76 146/74 Blood Pressure 179/81 [Left] O2 Sat by Pulse 97 Oximetry General appearance: Present: no acute distress, well-nourished, other (drowsy) - EENT Eyes: PERRL, EOM intact ENT: hearing intact, clear oral mucosa Ears: bilateral: normal - Neck Neck: supple, normal ROM - Respiratory Respiratory effort: normal Respiratory: bilateral: CTA - Breasts Breasts: normal - Cardiovascular Rhythm: regular Heart Sounds: Present: S1 & S2. Absent: gallop, rub Extremities: pulses intact, No edema, normal color, Full ROM - Gastrointestinal General gastrointestinal: Present: soft, non-tender, non-distended, normal bowel sounds - Genitourinary Male genitourinary: normal - Integumentary Integumentary: clear, warm, dry - Musculoskeletal Musculoskeletal: 1, strength equal bilaterally - Neurologic Neurologic: moves all extremities - Psychiatric Psychiatric: memory intact, appropriate mood/affect, intact judgment & insight - Labs CBC & Chem 7: 11/28/16 05:53 12/01/16 04:26 Labs: Abnormal lab results 11/30/16 12/01/16 Range/Units 14:41 04:26 BUN 8 L (9-20) mg/dL AST 69 H 75 H (5-40) units/L Total Creatine Kinase 1569 H (55-170) units/L
--- NOTE | 2016-12-01 12:18 | Progress Note ---
Subjective - Reason for Consult Consult date: 12/01/16 Reason for consult: Psychiatry Follow-up - Chief Complaint Chief complaint: "I want to go" Patient is a 31-year-old male who presents with a psychotic episode. Patient arrives belligerent and appears to be reacting to internal stimuli. Today patient is calm and cooperative but delusional during assessment. He still endorses AH's when asked. He stated that he cannot make out what the voices are saying. He stated that he would like to be discharge. When asked about what happen prior to his admission, the patient's answers were not logical. His thought process is tangential. He denies SI/HI's and VH's. Per the staff, patient was aggressive overnight after he completed his ADL's. Per the staff, patient is eating 100% of all his meals. Mental Status Exam - Vital signs Last Vital Signs Temp 98.0 F 12/01/16 08:03 Pulse 113 H 12/01/16 08:03 Resp 20 12/01/16 08:03 BP 179/81 12/01/16 08:03 Pulse Ox 97 12/01/16 08:03 - Exam Narrative exam: MSE: Appearance: calm, cooperative Behavior: regular eye contact Speech: regular rate and tone Mood: "okay" Affect: labile Thought Process: tangential Thought Content: denies SI/HI's and VH's, disorganized, delusional Motor Activity: lying bed Cognition: A/Ox 3 Insight: limited Judgment: limited Assessment and Plan Impression: Unspecified Mood DO with psychotic features. Substance Use DO ( marijuana). Today patient is calm and cooperative during the assessment. Patient in restraints. CK 1569, trending down. R/O NMS. QTC 466. Patient in restraints. Recommendation/Plan: Continue 1013 with placement to inpatient psy services. Continue Vistaril 25 mg PO BID for anxiety and use Ativan/Benadryl for agitation. Recommend no antipsychotics at this time. Monitor patient closely for symptoms of NMS (abnormal V/S - fever, irregular HR, elevated resp, tachycardia, muscle rigidity, AMS, and erratic BP). D/C restraints when not indicated. Recommend PT to see patient. Recommend patient be moved closer to the nurses station. Will assess patient daily.
[2016-12-01] MEDS: ATIVAN IM PRN (21:05)
[2016-12-02] MEDS: APRESOLINE IV SCH ×5 (00:10→23:00)
[2016-12-02] MEDS: ZOSYN/NS 4.5GM/100ML 4.5 GM/100 ML VIAL IV SCH ×5 (00:45→23:00)
[2016-12-02 05:01] LABS: Basophils % (Auto) 0.9 % (0.0-1.8); Eosinophils % (Auto) 1.6 % (0.0-4.3); Hematocrit 38.8 % (35.5-45.6); Hemoglobin 13.3 gm/dl (11.8-15.2); Mean Corpuscular HGB Conc 34 % (32-34); Mean Corpuscular Hemoglobin 31 pg (28-32); Mean Corpuscular Volume 91 fl (84-94); Platelet Count 340 K/mm3 (140-440); Red Blood Count 4.26 M/mm3 (3.65-5.03); White Blood Count 9.6 K/mm3 (4.5-11.0)
[2016-12-02 05:07] LABS: Alanine Aminotransferase 39 units/L (7-56); Albumin 3.8 g/dL (3.9-5); Albumin/Globulin Ratio 1.1 %; Alkaline Phosphatase 43 units/L (35-129); Anion Gap 20 mmol/L; Blood Urea Nitrogen 6 mg/dL (9-20); Calcium 9.1 mg/dL (8.4-10.2); Carbon Dioxide 22 mmol/L (22-30); Chloride 101.5 mmol/L (98-107); Glucose 91 mg/dL (75-100); Potassium 3.7 mmol/L (3.6-5.0); Sodium 140 mmol/L (137-145); Total Protein 7.3 g/dL (6.3-8.2)
[2016-12-02] MEDS: VISTARIL PO SCH (10:42)
[2016-12-02] MEDS: NORVASC PO SCH (10:42)
--- NOTE | 2016-12-02 13:13 | Progress Note ---
Assessment and Plan Assessment and Plan 1. Rhabdomyolysis: CK levels trending down. [place] to monitor. renal function stable, IV fluids d'leti. 2. Hypokalemia: Corrected. 3. SIRS: Blood cultures negative, no source of infection, likely secondary to rhabdo. 4. Schizophrenia with acute psychosis: Continue 1013, awaiting psych placement. 5. DVT prophylaxis: SCD. 6. Disposition: Medically cleared, awaiting placement. Subjective Date of service: 12/02/16 Principal diagnosis: Rhabdomyolysis, Acute psychosis, Schizophrenia Interval history: Awake, acting bizarre. Objective - Constitutional Vitals: Vital Signs - 12hr 12/02/16 12/02/16 12/02/16 06:49 08:36 10:42 Temperature 97.7 F Pulse Rate 86 107 H 107 H Respiratory 20 Rate Blood Pressure 144/87 143/83 143/83 O2 Sat by Pulse 96 Oximetry General appearance: Present: well-nourished, other (appears to be responding to intena stimulus) - EENT Eyes: PERRL, EOM intact ENT: hearing intact, clear oral mucosa Ears: bilateral: normal - Neck Neck: supple, normal ROM - Respiratory Respiratory effort: normal Respiratory: bilateral: CTA - Cardiovascular Rhythm: regular Heart Sounds: Present: S1 & S2. Absent: gallop, rub Extremities: pulses intact, No edema, normal color, Full ROM - Gastrointestinal General gastrointestinal: Present: soft, non-tender, non-distended, normal bowel sounds - Integumentary Integumentary: clear, warm, dry - Musculoskeletal Musculoskeletal: 1, strength equal bilaterally - Neurologic Neurologic: moves all extremities - Psychiatric Psychiatric: agitated, other (endoses auditory hallucination) - Labs CBC & Chem 7: 12/02/16 03:51 12/02/16 03:51 Labs: Abnormal lab results 12/02/16 12/02/16 Range/Units 03:51 03:51 RDW 13.0 L (13.2-15.2) % Hardeman % (Auto) 10.2 H (0.0-7.3) % Hardeman # 1.0 H (0.0-0.8) K/mm3 Seg Neutrophils % 71.0 H (40.0-70.0) % BUN 6 L (9-20) mg/dL AST 56 H (5-40) units/L Albumin 3.8 L (3.9-5) g/dL
--- NOTE | 2016-12-02 15:26 | Progress Note ---
Subjective - Reason for Consult Consult date: 12/02/16 Reason for consult: follow up - Chief Complaint Chief complaint: "I'm a little hungry." Patient is a 31-year-old male who presents with a psychotic episode. Today patient is calm and cooperative. He is in four points and waist restraint. He is attempting to move often. He is stuttering. He admits to auditory hallucinations. His affect is labile. He follows commands. He reports having trouble urinating. Per the staff, patient is eating his meals but about 50% today. He is not verbally aggressive or threatening. Mental Status Exam - Vital signs Last Vital Signs Temp 97.7 F 12/02/16 13:31 Pulse 101 H 12/02/16 13:37 Resp 20 12/02/16 13:31 BP 139/70 12/02/16 13:37 Pulse Ox 97 12/02/16 13:31 - Exam Narrative exam: MSE: Appearance: calm, cooperative Behavior: regular eye contact Speech: stuttering Mood: "okay" Affect: labile Thought Process: tangential Thought Content: denies SI/HI's and VH's, disorganized, delusional Motor Activity: lying bed Cognition: A/Ox 3 Insight: limited Judgment: limited Assessment and Plan Impression: Unspecified Mood DO with psychotic features. Substance Use DO ( marijuana). Today patient is calm and cooperative during the assessment. Patient in restraints. CK 1569, trending down. R/O NMS. QTC 466. Recommendation/Plan: Continue 1013 with placement to inpatient psy services. Discontinue Vistaril. We will avoid anticholinergics since he is reporting symptoms consistent with urinary retention. Monitor patient closely for symptoms of NMS (abnormal V/S - fever, irregular HR, elevated resp, tachycardia , muscle rigidity, AMS, and erratic BP). D/C restraints when not indicated. Recommend PT to see patient. Recommend patient be moved closer to the nurses station. Will assess patient daily.
[2016-12-02] MEDS: ATIVAN IM PRN (23:17)
[2016-12-03] MEDS ORDERED: ATIVAN IM ONE (05:39)
[2016-12-03] MEDS: ZOSYN/NS 4.5GM/100ML 4.5 GM/100 ML VIAL IV SCH ×3 (05:45→18:12)
[2016-12-03] MEDS: APRESOLINE IV SCH ×3 (05:52→18:23)
--- NOTE | 2016-12-03 07:33 | Progress Note ---
Assessment and Plan Assessment and Plan - Schizophrenia with acute psychosis: Continue 1013, awaiting psych placement. - Rhabdomyolysis: CK levels trending down. Continue to monitor. renal function stable, IV fluids d'leti. - Hypokalemia: Corrected. - SIRS: Blood cultures negative, no source of infection, likely secondary to rhabdo. - DVT prophylaxis: SCD. - Disposition: Medically cleared, awaiting placement. Subjective Date of service: 12/03/16 Principal diagnosis: Rhabdomyolysis, Acute psychosis, Schizophrenia Interval history: Awake. Still in restraint. Was said to have been very agitated last night per Pt 's nurse, biting off his iv line, throwing his iv pole away despite restrain, acting bizarre. Still hear voices he said Objective - Constitutional Vitals: Vital Signs - 12hr 12/02/16 12/02/16 12/03/16 20:25 22:00 05:51 Temperature 98.8 F 98.9 F Pulse Rate 110 H 112 H Respiratory 22 Rate Respiratory 22 Rate [ Generalized] Blood Pressure 176/92 149/85 O2 Sat by Pulse 97 99 Oximetry 12/03/16 05:52 Temperature Pulse Rate 112 H Respiratory Rate Respiratory Rate [ Generalized] Blood Pressure 149/85 O2 Sat by Pulse Oximetry General appearance: Present: well-nourished, other (agitated) - EENT Eyes: PERRL, EOM intact - Neck Neck: supple, normal ROM - Respiratory Respiratory effort: normal Respiratory: bilateral: CTA - Breasts Breasts: normal - Cardiovascular Rhythm: regular Heart Sounds: Present: S1 & S2. Absent: gallop, rub Extremities: pulses intact, No edema, normal color, Full ROM - Gastrointestinal General gastrointestinal: Present: soft, non-tender, non-distended, normal bowel sounds - Integumentary Integumentary: clear, warm, dry - Musculoskeletal Musculoskeletal: 1, strength equal bilaterally - Neurologic Neurologic: moves all extremities - Psychiatric Psychiatric: memory intact, appropriate mood/affect, intact judgment & insight - Labs CBC & Chem 7: 12/02/16 03:51 12/02/16 03:51 Labs: Abnormal lab results 12/02/16 Range/Units 23:06 Total Creatine Kinase 701 H (55-170) units/L
[2016-12-03] MEDS: NORVASC PO SCH (10:38)
[2016-12-03] MEDS: ATIVAN IM PRN (18:13)
--- NOTE | 2016-12-03 18:27 | Progress Note ---
Subjective - Reason for Consult Consult date: 12/03/16 Reason for consult: follow up - Chief Complaint Chief complaint: "I thought I was in a movie set." Patient is a 31-year-old male who presents with a psychotic episode. Today patient is calm and cooperative. He is in a waist restraint. He was eating [employer] today. His sister is at bedside. She reports this is his first episode of psychotic symptoms. She states he has been under stress because he lost his job, his car, and then his phone service, which was his connection to his relatives in [place]. He is not verbally aggressive or threatening. He yells intermittently. He showered today without difficulty. He had moments when he asked questions about why he is in the hospital. Mental Status Exam - Vital signs Last Vital Signs Temp 98.5 F 12/03/16 17:25 Pulse 105 H 12/03/16 17:25 Resp 18 12/03/16 17:25 BP 142/78 12/03/16 17:25 Pulse Ox 98 12/03/16 17:25 - Exam Narrative exam: MSE: Appearance: calm, cooperative Behavior: intense eye contact Speech:slow speech Mood: "okay" Affect: labile Thought Process: tangential Thought Content: denies SI/HI's and VH's, disorganized, delusional Motor Activity: lying bed Cognition: A/Ox 3 Insight: limited Judgment: limited Assessment and Plan Impression: Unspecified Mood DO with psychotic features. Substance Use DO ( marijuana). Today patient is calm and cooperative during the assessment. Patient in waist restraint only today. CK 1569, trending down. R/O NMS. QTC 466. Recommendation/Plan: Continue 1013 with placement to inpatient psy services. Vistaril was discontinued yesterday. We will avoid anticholinergics since he is reporting symptoms consistent with urinary retention. Monitor patient closely for symptoms of NMS (abnormal V/S - fever, irregular HR, elevated resp, tachycardia, muscle rigidity, AMS, and erratic BP). Will assess patient daily. Psychotropics have been held. Antipsychotics will be addressed when his CK is under 200.
[2016-12-03] MEDS: TYLENOL PO PRN ×2 (20:55→21:00)
[2016-12-04] MEDS: ZOSYN/NS 4.5GM/100ML 4.5 GM/100 ML VIAL IV SCH ×3 (01:20→13:11)
[2016-12-04] MEDS: APRESOLINE IV SCH ×4 (01:21→18:20)
[2016-12-04] MEDS: ATIVAN IM PRN ×2 (04:14→11:59)
[2016-12-04] MEDS: TYLENOL PO PRN (11:29)
--- NOTE | 2016-12-04 11:30 | Progress Note ---
Subjective - Reason for Consult Consult date: 12/04/16 Reason for consult: Psychiatry Follow-up - Chief Complaint Chief complaint: "I want to go home" Patient is a 31-year-old male who presents with a psychotic episode. Today patient is calm and cooperative. Patient was in upper and lower restraints. He was emotional during the assessment stated that he wanted to go home. Patient was released from the upper extremity restraints and he became more engaging. After being released from restraints, the patient asked for his bible. He did endorse AH's, but could not elaborate more about what the voices were saying. He did confirm that he lost his job, his car, and have financial issues over the past several months. He was not aggressive or threatening during the assessment. He denies SI/HI's and VH's. Mental Status Exam - Vital signs Last Vital Signs Temp 99.2 F 12/04/16 08:40 Pulse 112 H 12/04/16 08:40 Resp 20 12/04/16 08:40 BP 137/77 12/04/16 08:40 Pulse Ox 98 12/04/16 08:40 - Exam Narrative exam: MSE: Appearance: calm, cooperative, emotional Behavior: intense eye contact Speech: slow speech Mood: "I don't know" Affect: labile Thought Process: circumstantial Thought Content: denies SI/HI's and VH's, disorganized Motor Activity: lying bed Cognition: A/Ox 3 Insight: limited Judgment: limited Assessment and Plan Impression: Unspecified Mood DO with psychotic features. Substance Use DO ( marijuana). Today patient is calm and cooperative during the assessment. Patient denies any complication when he void (retention). QTC 466. CK 896. Recommendation/Plan: Continue 1013 with placement to inpatient psy services since he is medically clear. We will avoid anticholinergics since he is reported urinary retention on previous assessments. Monitor patient closely for symptoms of NMS (abnormal V/S - fever, irregular HR, elevated resp, tachycardia , muscle rigidity, AMS, and erratic BP). Recommended to the assigned nurse to move patient closer to the nurses station. Antipsychotics administration will be addressed when his CK is under 200. Start Depakote 500 mg PO BID for mood and Thorazine 50 mg IM Q6hrs for physical agitation.
[2016-12-04] MEDS: NORVASC PO SCH (11:35)
--- NOTE | 2016-12-04 12:08 | Progress Note ---
Assessment and Plan Schizophrenia with acute psychosis: - Continue 1013, awaiting psych placement. - added haldol, benadryl and ativan as needed for acute agitation - cont restrain Rhabdomyolysis: - CK levels trending down. - Continue to monitor. renal function stable, - off iv fkuid Hypokalemia: Corrected. SIRS: - Blood cultures negative, no source of infection, likely secondary to rhabdo. - no infiltrates on CXR - d/c abx DVT prophylaxis: SCD. Disposition: Medically cleared, awaiting placement. Subjective Date of service: 12/04/16 Principal diagnosis: Rhabdomyolysis, Acute psychosis, Schizophrenia Interval history: pt seen and examined noted to have significant agitation this morning, required 2 security architect to hold him Objective - Constitutional Vitals: Vital Signs - 12hr 12/04/16 12/04/16 12/04/16 00:18 05:50 08:40 Temperature 98.9 F 98.7 F 99.2 F Pulse Rate 90 112 H Respiratory 24 20 Rate Blood Pressure 122/71 127/70 137/77 O2 Sat by Pulse 98 98 Oximetry General appearance: Present: well-nourished, other (very agitated, placed on restrained) - EENT Eyes: no scleral icterus, no conjunctival injection ENT: hearing intact, clear oral mucosa Ears: bilateral: normal - Neck Neck: supple, normal ROM - Respiratory Respiratory effort: normal Respiratory: bilateral: CTA - Cardiovascular Rhythm: regular Heart Sounds: Present: S1 & S2. Absent: gallop, rub Extremities: pulses intact, No edema, normal color, Full ROM - Gastrointestinal General gastrointestinal: Present: soft, non-tender, non-distended, normal bowel sounds - Integumentary Integumentary: clear, warm, dry - Musculoskeletal Musculoskeletal: 1, strength equal bilaterally - Neurologic Neurologic: moves all extremities - Psychiatric Psychiatric: memory intact, appropriate mood/affect, intact judgment & insight - Labs CBC & Chem 7: 12/02/16 03:51 12/02/16 03:51 Labs: Abnormal lab results 12/03/16 Range/Units 17:52 Total Creatine Kinase 696 H (55-170) units/L - Imaging and cardiology Chest x-ray: report reviewed CT scan - abdomen: report reviewed CT Scan - head: report reviewed
[2016-12-04] MEDS ORDERED: BENADRYL IV PRN (12:20)
[2016-12-04] MEDS ORDERED: HALDOL IM PRN (13:09)
[2016-12-04 14:41] LABS: Alanine Aminotransferase 36 units/L (7-56); Alkaline Phosphatase 44 units/L (35-129)
[2016-12-04] MEDS: THORAZINE IM PRN (20:45)
[2016-12-05] MEDS: APRESOLINE IV SCH ×4 (01:01→18:42)
[2016-12-05] MEDS: NORVASC PO SCH (11:52)
--- NOTE | 2016-12-05 15:16 | Progress Note ---
Assessment and Plan Schizophrenia with acute psychosis: - Continue 1013, awaiting psych placement. - per psych Continue Depakote 500 mg PO BID for mood and Thorazine 50 mg IM Q6hrs for acute physical agitation. - Started Klonopin 1 mg PO BID for agitation. Rhabdomyolysis: - CK level slightly trended up. - Continue to monitor. renal function stable, - restat iv fkuid Hypokalemia: Corrected. SIRS: - Blood cultures negative, no source of infection, likely secondary to rhabdo. - no infiltrates on CXR - d/c abx DVT prophylaxis: SCD. Disposition: Medically cleared, awaiting placement. Subjective Date of service: 12/05/16 Principal diagnosis: Rhabdomyolysis, Acute psychosis, Schizophrenia Interval history: pt seen and examined appears much calm today, of restrain, but does not follow commend Objective - Exam Narrative Exam: General appearance: Present: well-nourished, - EENT Eyes: no scleral icterus, no conjunctival injection ENT: hearing intact, clear oral mucosa Ears: bilateral: normal - Neck Neck: supple, normal ROM - Respiratory Respiratory effort: normal Respiratory: bilateral: CTA - Cardiovascular Rhythm: regular Heart Sounds: Present: S1 & S2. Absent: gallop, rub Extremities: pulses intact, No edema, normal color, Full ROM - Gastrointestinal General gastrointestinal: Present: soft, non-tender, non-distended, normal bowel sounds - Integumentary Integumentary: clear, warm, dry - Musculoskeletal Musculoskeletal: 1, strength equal bilaterally - Neurologic Neurologic: moves all extremities - Psychiatric Psychiatric: does not follow commend or answer any question - Constitutional Vitals: Vital Signs - 12hr 12/05/16 08:03 Temperature 98.2 F Pulse Rate 91 H Respiratory 20 Rate Blood Pressure 133/71 O2 Sat by Pulse 97 Oximetry - Labs CBC & Chem 7: 12/02/16 03:51 12/02/16 03:51 Labs: Abnormal lab results 12/04/16 Range/Units 15:19 Total Creatine Kinase 846 H (55-170) units/L
[2016-12-05] MEDS: THORAZINE IM PRN ×2 (15:21→21:01)
--- NOTE | 2016-12-05 17:04 | Progress Note ---
Subjective - Reason for Consult Consult date: 12/05/16 Reason for consult: Psychiatry Follow-up - Chief Complaint Chief complaint: "I want to go home" Patient is a 31-year-old male who presents with a psychotic episode. Today patient is calm and cooperative. Patient was released from restraints during the assessment. The patient would not answer questions when asked, but was observed eating his meal. This is a different presentation from previous assessments. On previous assessments, patient would answer or try to answer questions asked of him. Per the staff notes, patient have been more agitated at night. No gestures of SI/HI's and AVH's. Mental Status Exam - Vital signs Last Vital Signs Temp 98.2 F 12/05/16 08:03 Pulse 91 H 12/05/16 08:03 Resp 20 12/05/16 08:03 BP 133/71 12/05/16 08:03 Pulse Ox 97 12/05/16 08:03 - Exam Narrative exam: MSE: Appearance: calm Behavior: poor eye contact Speech: slow speech Mood: unable to assess Affect: blunted Thought Process: unable to assess Thought Content: no gestures of SI/HI's and AVH's Motor Activity: sitting up in bed eating, psychomotor retardation Cognition: unable to assess Insight: unable to assess Judgment: unable to assess Assessment and Plan Impression: Unspecified Mood DO with psychotic features. Substance Use DO ( marijuana). Today patient is calm during the assessment. QTC 466. CK 896. Patient wasn't in restraint during the assessment. Recommendation/Plan: Continue 1013 with placement to inpatient psy services. We will avoid anticholinergics since he is reported urinary retention on previous assessments. Monitor patient closely for symptoms of NMS (abnormal V/S - fever, irregular HR, elevated resp, tachycardia, muscle rigidity, AMS, and erratic BP) . Recommended to the assigned nurse to move patient closer to the nurses station. Antipsychotics administration will be addressed when his CK is under 200. Continue Depakote 500 mg PO BID for mood and Thorazine 50 mg IM Q6hrs for acute physical agitation. Start Klonopin 1 mg PO BID for agitation.
[2016-12-06] MEDS: APRESOLINE IV SCH ×4 (00:09→17:58)
[2016-12-06] MEDS: THORAZINE IM PRN ×2 (07:04→15:04)
[2016-12-06] MEDS: NORVASC PO SCH (11:18)
--- NOTE | 2016-12-06 15:58 | Progress Note ---
Assessment and Plan Schizophrenia with acute psychosis: - Continue 1013, awaiting psych placement. - per psych Continue Depakote 500 mg PO BID for mood and Thorazine 50 mg IM Q6hrs for acute physical agitation. - Started Klonopin 1 mg PO BID for agitation. Rhabdomyolysis: - CK level slightly trended up. likely due to fighting against restrain - unable to recheck, pt does not have iv access for iv fluid - Patient asymptomatic Hypokalemia: Corrected. SIRS: - Blood cultures negative, no source of infection, likely secondary to rhabdo. - no infiltrates on CXR - d/cedabx DVT prophylaxis: SCD. Disposition: Medically cleared, awaiting placement. Subjective Date of service: 12/06/16 Principal diagnosis: Rhabdomyolysis, Acute psychosis, Schizophrenia Interval history: pt seen and examined appears much calm today, off restrain, having lunch Objective - Exam Narrative Exam: General appearance: Present: well-nourished, - EENT Eyes: no scleral icterus, no conjunctival injection ENT: hearing intact, clear oral mucosa Ears: bilateral: normal - Neck Neck: supple, normal ROM - Respiratory Respiratory effort: normal Respiratory: bilateral: CTA - Cardiovascular Rhythm: regular Heart Sounds: Present: S1 & S2. Absent: gallop, rub Extremities: pulses intact, No edema, normal color, Full ROM - Gastrointestinal General gastrointestinal: Present: soft, non-tender, non-distended, normal bowel sounds - Integumentary Integumentary: clear, warm, dry - Musculoskeletal Musculoskeletal: 1, strength equal bilaterally - Neurologic Neurologic: moves all extremities - Psychiatric Psychiatric: disorganized thought - Constitutional Vitals: Vital Signs - 12hr 12/06/16 12/06/16 06:57 11:18 Pulse Rate 118 H 60 Blood Pressure 113/73 153/91 - Labs CBC & Chem 7: 12/02/16 03:51 12/02/16 03:51
[2016-12-06] MEDS: NACL 0.9% 1000 ML 1,000 ML IV SCH (17:58)
--- NOTE | 2016-12-06 20:22 | Progress Note ---
Subjective - Reason for Consult Reason for consult: psych consult - Chief Complaint Chief complaint: 31 year old BM. Patient continues to presents with some levels of cognitive issues. He struggles with answering questions and at one point had to think for several moments and ask for the question to be repeated with asking him for his name. He continues to stutter throughout the interview and has limited input as to the reasons why his behaviors has changed so much. He denies any AH or VH. He notes being depressed secondary to several stressors including work and his sister. no SI/HI. Pre staff he's been agitated more in the evening. Mental Status Exam - Vital signs Last Vital Signs Temp 97.8 F 12/06/16 19:23 Pulse 127 H 12/06/16 19:23 Resp 16 12/06/16 15:36 BP 149/89 12/06/16 19:23 Pulse Ox 97 12/06/16 19:23 - Exam Orientation: person Affect: depressed Thought Process: Circumstantial, Tangential, Thought Blocking, Disoriented Perceptions: none Speech: paucity Concentration: distractible, unable to pay attention Motor activity: restless Level of consciousness: alert Interaction: cooperative Assessment and Plan Assessment and Plan Impression: Unspecified Mood DO with psychotic features. Substance Use DO ( marijuana), substance induced psychosis. Recommendation/Plan: Continue 1013 with placement to inpatient psy services. We will avoid anticholinergics since he is reported urinary retention on previous assessments. Monitor patient closely for symptoms of NMS (abnormal V/S - fever, irregular HR, elevated resp, tachycardia, muscle rigidity, AMS, and erratic BP) . Antipsychotics administration will be addressed when his CK is under 200. Continue Depakote 500 mg PO BID for mood and Thorazine 50 mg IM Q6hrs for acute physical agitation. Start Klonopin 1 mg PO BID for agitation. Refrain from restraints as they are contributing to the high CPK. We would like to transition to another a more D2 blocking antipsychotic but are waiting for CPK to lower further.
[2016-12-06] MEDS: TYLENOL PO PRN (23:54)
[2016-12-07] MEDS: APRESOLINE IV SCH ×4 (00:14→19:01)
[2016-12-07] MEDS: NACL 0.9% 1000 ML 1,000 ML IV SCH (09:33)
[2016-12-07] MEDS: NORVASC PO SCH (09:33)
--- NOTE | 2016-12-07 11:52 | Progress Note ---
Subjective - Reason for Consult Consult date: 12/07/16 Reason for consult: Psychiatry Follow-up - Chief Complaint Chief complaint: "Hello" 31 year old BM. Patient continues to presents with some levels of cognitive issues. Today patient is calm and cooperative during the assessment. He still stutters when he speak with delayed answers. He stated that he went through a lot over the past couple months. He stated that he felt "depressed and sad" ( helpless and hopeless at times), but denies that today. He stated feeling like that when he was in restraints. He stated that he would like help dealing with his issues once discharged. He denies SI/HI's and AVH's. He stated that his sleep has gotten better the last couple nights. He denies any side effects of his medications. Mental Status Exam - Vital signs Last Vital Signs Temp 98.7 F 12/07/16 07:54 Pulse 108 H 12/07/16 07:54 Resp 20 12/07/16 07:54 BP 147/81 12/07/16 07:54 Pulse Ox 99 12/07/16 07:54 - Exam Narrative exam: MSE: Appearance: calm, cooperative Behavior: regular eye contact Speech: stutter Mood: "better, I'm out of restraints" Affect: congruent to mood Thought Process: circumstantial Thought Content: denies SI/HI's and AVH's Motor Activity: sitting up in bed, psychomotor retardation Cognition: A/O x 3 Insight: variable Judgment: variable Assessment and Plan Impression: Impression: Unspecified Mood DO. Substance Use DO (marijuana). Today patient is calm during the assessment. CK 884. Patient no longer in restraints. Recommendation/Plan: Evaluate 1013 in 24 hours to determine proper dispo. We will avoid anticholinergics since he is reported urinary retention on previous assessments. Antipsychotics administration will be addressed when his CK is under 200. Continue Depakote 500 mg PO BID for mood and Thorazine 50 mg IM Q6hrs for acute physical agitation. Continue Klonopin 1 mg PO BID for agitation. Refrain from restraints as they are contributing to the high CK. We would like to transition to another D2 blocking antipsychotic but waiting for CK to lower further.
[2016-12-07] MEDS: THORAZINE IM PRN (14:59)
--- NOTE | 2016-12-07 15:06 | Progress Note ---
Assessment and Plan Schizophrenia with acute psychosis: - Continue 1013, awaiting psych placement. - per psych Continue Depakote 500 mg PO BID for mood and Thorazine 50 mg IM Q6hrs for acute physical agitation. - Started Klonopin 1 mg PO BID for agitation. Rhabdomyolysis: - CK level slightly trended up. likely due to fighting against restrain - unable to recheck, pt does not have iv access for iv fluid - Patient asymptomatic, continue to monitor off restrain Hypokalemia: Corrected. SIRS: - Blood cultures negative, no source of infection, likely secondary to rhabdo. - no infiltrates on CXR - d/leti abx DVT prophylaxis: SCD. Disposition: Medically cleared, awaiting placement. Subjective Date of service: 12/07/16 Principal diagnosis: Rhabdomyolysis, Acute psychosis, Schizophrenia Interval history: pt seen and examined He is more agitated today, roaming inside the room Objective - Exam Narrative Exam: General appearance: Present: well-nourished, - EENT Eyes: no scleral icterus, no conjunctival injection ENT: hearing intact, clear oral mucosa Ears: bilateral: normal - Neck Neck: supple, normal ROM - Respiratory Respiratory effort: normal Respiratory: bilateral: CTA - Cardiovascular Rhythm: regular Heart Sounds: Present: S1 & S2. Absent: gallop, rub Extremities: pulses intact, No edema, normal color, Full ROM - Gastrointestinal General gastrointestinal: Present: soft, non-tender, non-distended, normal bowel sounds - Integumentary Integumentary: clear, warm, dry - Musculoskeletal Musculoskeletal: 1, strength equal bilaterally - Neurologic Neurologic: moves all extremities - Psychiatric Psychiatric: disorganized thought, agitated - Constitutional Vitals: Vital Signs - 12hr 12/07/16 12/07/16 12/07/16 06:08 06:12 07:54 Temperature 99.1 F 98.7 F Pulse Rate 104 H 104 H 108 H Respiratory 18 20 Rate Blood Pressure 134/75 137/75 147/81 O2 Sat by Pulse 99 99 Oximetry - Labs CBC & Chem 7: 12/02/16 03:51 12/02/16 03:51 Labs: Abnormal lab results 12/07/16 Range/Units 04:08 Total Creatine Kinase 884 H (55-170) units/L
[2016-12-07] MEDS: TYLENOL PO PRN (22:37)
[2016-12-08] MEDS: APRESOLINE IV SCH ×4 (00:35→19:24)
[2016-12-08] MEDS: TYLENOL PO PRN (05:09)
[2016-12-08] MEDS: NACL 0.9% 1000 ML 1,000 ML IV SCH (05:09)
--- NOTE | 2016-12-08 12:56 | Progress Note ---
Subjective - Reason for Consult Consult date: 12/08/16 Reason for consult: Psychiatry Follow-up - Chief Complaint Chief complaint: "How are you" 31 year old BM. Patient continues to presents with some levels of cognitive issues. Today patient is calm and cooperative during the assessment. He still stutter when he speak, but improving. He stated that he would like to be discharged and return home with his sister. He was able to tell me his and recall 3/3 numbers (7,17,20) within 5 mins. He could ID the current and past [place] presidents. Patient have not been restrain the past 2 days with no behavioral disturbances. He stated that he would like a referral for outpatient psy services to talk with a therapist because of his stressors. He denies SI/HI's and AVH's. He denies sleep disturbances and a poor appetite. Per the staff patient is completing his ADL's. Mental Status Exam - Vital signs Last Vital Signs Temp 98.5 F 12/08/16 07:56 Pulse 102 H 12/08/16 07:56 Resp 20 12/08/16 07:56 BP 114/66 12/08/16 07:56 Pulse Ox 99 12/08/16 07:56 - Exam Narrative exam: MSE: Appearance: calm, cooperative Behavior: regular eye contact Speech: stutter, but improving Mood: "much better" Affect: congruent to mood Thought Process: circumstantial Thought Content: denies SI/HI's and AVH's Motor Activity: sitting up in bed Cognition: A/O x 3 Insight: fair Judgment: fair Assessment and Plan Impression: Impression: Unspecified Mood DO. Substance Use DO (marijuana). Today patient is calm during the assessment. CK 1046. Patient no longer in restraints. Recommendation/Plan: Rescind 1013. Continue Depakote 500 mg PO BID for mood and Klonopin 1 mg PO BID for agitation. Patient can follow up with outpatient psy services with [facility] for proper Klonopin taper. [facility] was discussed with the patient and his sister Earle Guallpa.
[2016-12-08] MEDS: THORAZINE IM PRN (14:08)
[2016-12-08] MEDS: NORVASC PO SCH (15:58)
[2016-12-08 19:23] VITALS: BP 147/66
--- NOTE | 2016-12-09 02:14 | Discharge Summary ---
Providers - Providers Date of Admission: 11/21/16 19:00 Date of discharge: 12/08/16 Attending physician: KASHIF HAWK Primary care physician: EFRA DENNIS MD Hospitalization Condition: Stable Disposition: [id number]/[place]-[id number] HOSP/PSY UNIT Core Measure Documentation - Palliative Care Palliative Care/ Comfort Measures: Not Applicable Exam - Constitutional Vitals: Temp Pulse Resp BP Pulse Ox 98.7 F 107 H 20 147/66 99 12/08/16 15:58 12/08/16 16:02 12/08/16 15:58 12/08/16 19:23 12/08/16 15:58 Plan Follow up with: PRIMARY CARE, [Primary Care Provider] - 3-5 Days Prescriptions: amLODIPine [Norvasc] 10 mg PO DAILY #30 tablet hydrOXYzine PAMOATE [Vistaril] 50 mg PO Q6HR PRN #10 capsule PRN Reason: Anxiety
== END 2016-12-08 22:54 | DRG 885 ==
LOC: EEVIPCON 18:26 → ED 18:26 → 3A 19:00
PROVIDERS: ADMIT Internal Medicine; ATTEND Internal Medicine
DX: F23 Brief psychotic disorder (principal); M62.82 Rhabdomyolysis; R65.10 Systemic inflammatory response syndrome (SIRS) of non-infectious origin without acute organ dysfunction; F25.9 Schizoaffective disorder, unspecified; I10 Essential (primary) hypertension; F39 Unspecified mood [affective] disorder; F12.90 Cannabis use, unspecified, uncomplicated; F31.9 Bipolar disorder, unspecified; E87.6 Hypokalemia; F15.959 Other stimulant use, unspecified with stimulant-induced psychotic disorder, unspecified
CPT/HCPCS: 36415; 71010; 74176; 80048; 80053; 80074; 80164; 80307; 80320; 81001; 82140; 82550; 83735; 84075; 84450; 84460; 85025; 85027; 87040; 93005; 93010; 96372; 99285; G0480; J0360; J1200; J1630; J1631; J2060; J2543; J3230; J3480; J3486; J7030; J7042; Q0177